=== PATIENT | female | born 1945 | race African-American/Black ===

== ENCOUNTER 2017-06-22 16:54 | Emergency (ER) | payer OTHER, MEDICAID ==
[~2017-06-22] VITALS: Ht 157.5 cm; Wt 88.9 kg
[~2017-06-22 16:54] MED LIST: ADVAIR 250-501 EACH INH; ALBUTEROL SULF8.5 GM INH; ASPIRIN EC81 MG PO; ATORVASTATIN CA10 MG PO; ATORVASTATIN CA20 MG ORAL; ATROVENT HFA12.9 GM IH; AZITHROMYCIN250 MG ORAL; AZITHROMYCIN250 MG PO; COREG3.125 MG ORAL; DEXAMETHASONE2 MG PO; DILTIAZEM 24HR360 MG PO; DOXYCYCLINE MO100 MG PO; FUROSEMIDE20 M1 PO; FUROSEMIDE40 MG/5 ML ORAL; GABAPENTIN800 MG PO; KLOR-CON 1010 MEQ PO; NEURONTIN100 MG ORAL; NORCO 5-325 TA1 EAC1 ORAL; PROAIR HFA8.5 GM INH; PROMETHAZINE-C118 M1 ORAL; TRAMADOL HCL50 MG ORAL; TRAMADOL HCL50 MG PO; TYLENOL #31 TAB PO; VENTOLIN HFA18 GM INH
[2017-06-22] MEDS: Norco 7.5mg/325mg tab ORAL ONE (19:10)
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
[2017-06-22 19:55] VITALS: BP 166/89
[2017-06-22 20:00] VITALS: BP 177/98
--- NOTE | 2017-06-23 14:24 | Diagnostic Imaging Report ---
Indications: Fall, left knee injury and pain Technique: 3 views left knee. Findings: Comparison: None No fracture, dislocation, joint space widening or effusion , surrounding soft tissue swelling/foreign body/gas, or other acute changes are identified. Patellofemoral and knee joint space is severely narrowed with marginal osteophyte formation, subchondral sclerosis. IMPRESSION: No evidence of acute injury the left knee Severe osteoarthritis.
== END 2017-06-22 20:00 | disposition home or self-care (01) ==
LOC: EMR 17:45
DX: M17.12 Unilateral primary osteoarthritis, left knee (principal); I10 Essential (primary) hypertension; J44.9 Chronic obstructive pulmonary disease, unspecified; K21.9 Gastro-esophageal reflux disease without esophagitis
CPT/HCPCS: 29530; 99283

== ENCOUNTER 2017-11-30 19:43 | Emergency (ER) | payer MEDICAID, MEDICARE, OTHER ==
[~2017-11-30] VITALS: Ht 157.5 cm; Wt 138.8 kg
[2017-11-30] MEDS ORDERED: NORCO 5-325 TA1 EAC1 ORAL (21:05)
[2017-11-30 21:27] VITALS: BP 131/71
--- NOTE | 2017-11-30 22:12 | Emergency Room Report ---
History of Present Illness General Chief Complaint: Lower Extremity Injury Source: Patient (LIO KHOURY) Present Illness HPI The patient is a 72-year-old female presenting for right toe pain. She has a history of chronic swelling to the extremities. She states that 3 weeks ago, she was putting on her underwear which caught her toe and pulled it. Pain has continued and is an 8/10 dull ache. Does not radiate. It worse with touch. She denies other symptoms including numbness or tingling, fever, chills, calf pain, shortness of breath (LIO KHOURY) Allergies: Coded Allergies: HYDROCODONE (Verified Allergy, Mild, 09/19/11) Patient History Past Medical History: see triage record Pertinent Family History: none Reviewed Nursing Documentation: PMH: Agreed, PSxH: Agreed (LIO KHOURY) Nursing Documentation-PMH Hx Hypertension: Yes Hx Pacemaker: No Hx Asthma: Yes Hx COPD: Yes Hx Diabetes: No Hx Cancer: No Hx Gastrointestinal Problems: Yes - GERD Hx Dialysis: No Hx Neurological Problems: No Hx Cerebrovascular Accident: No (LIO KHOURYATherese) Review of Systems All Other Systems: negative except mentioned in HPI (LIO KHOURY) Physical Exam Vital Signs Date Time Temp Pulse Resp B/P (MAP) Pulse Ox O2 Delivery O2 Flow Rate FiO2 11/30/17 20:04 98.1 96 16 131/71 97 Room Air Sp02 EP Interpretation: reviewed, normal General Appearance: no apparent distress, alert, GCS 15, non-toxic Head: normocephalic, atraumatic Eyes: bilateral eye normal inspection, bilateral eye PERRL Musculoskeletal: back normal, gait/station normal, normal range of motion, swelling - bilat lower legs, tender - R 3rd toe Neurologic: alert, oriented x3, responsive, motor strength/tone normal, sensory intact, speech normal Psychiatric: judgement/insight normal, memory normal, mood/affect normal, no suicidal/homicidal ideation Skin: normal color, no rash, warm/dry Lymphatic: no adenopathy (LIO KHOURYATherese) Medical Decision Making PA Attestation Dr. Wagner is my supervising physician. Patient management was discussed with my supervising physician (LIO KHOURYATherese) Medicare Attestation I, Teresa Wagner MD hereby attest that the medical record entry accurately reflects signatures/notations that I made in my capacity as MD when I treated/ diagnosed the above listed Medicare beneficiary. I attest that this information is true, accurate and complete to the best of my knowledge. I understand that any falsification, omission, or concealment of material fact may subject me to administrative, civil, or criminal liability. This patient warrants hospital admission for extreme of age and has a condition that cannot be treated as outpatient. (Teresa Wagner M.D.) Diagnostic Impression: Primary Impression: Toe sprain Qualified Codes: S93.509A - Unspecified sprain of unspecified toe(s), initial encounter ER Course The patient is a 72-year-old female presenting for right toe pain. Differential diagnoses considered but not limited to: paronychia, abscess, cellulitis, fracture, sprain, among others PE: NAD. Afebrile. There is bilateral lower leg edema. Patient states that this is normal. This is a chronic condition. Nonpitting. No rash. There is tenderness over the third toe. Full active range of motion is intact. No ecchymosis X-ray of the right foot shows no acute findings She'll be discharged with pain medication. ER precautions are given (LIO KHOURY.Antonietta) ER Course I have reviewed the PA's interpretation of Xray results and agree with findings. (Teresa Wagner M.D.) Other X-Ray Diagnostic Results Other X-Ray Diagnostic Results : X-Ray ordered: R foot # of Views/Limited Vs Complete: 3 View Indication: Pain EP Interpretation: Yes PA Xray: Interpretation reviewed, by supervising MD, and agrees with findings. Interpretation: no dislocation, no fractures Impression: No acute disease Electronically Signed by: Lio Khoury PA-C (LIO KHOURY) Last Vital Signs Date Time Temp Pulse Resp B/P (MAP) Pulse Ox O2 Delivery O2 Flow Rate FiO2 11/30/17 21:27 98.1 16 131/71 97 Room Air 11/30/17 20:04 96 Status: improved (LIO KHOURY) Disposition: HOME, SELF-CARE Condition: Improved Scripts Hydrocodone Bit/Acetaminophen 5-325* (NORCO 5-325 TABLET*) 1 Each Tablet 1 TAB ORAL Q6HR Y for For Pain, #10 TAB Prov: LIO KHOURY 11/30/17 Patient Instructions: Foot Sprain Additional Instructions: I discussed my findings with the patient. All questions and concerns have been answered. Treatment and medication compliance have been addressed. Return to ED if symptoms worsen, new symptoms arise, or if needed for any reason. Patient verbalized understanding of discharge instructions. You stated you have an appointment to see her primary doctor tomorrow for. Please keep that appointment. LIO KHOURY Nov 30, 2017 22:12 Teresa Wagner M.D. Dec 04, 2017 13:57
--- NOTE | 2017-12-01 09:22 | Diagnostic Imaging Report ---
Indication: Reason For Exam: PAIN Technique: 3 views right foot Comparison: none Findings: The dorsal soft tissues are massively swollen. There is metatarsus adductus. There is hallux valgus with severe secondary degenerative changes of the first metatarsophalangeal joint. There is also slight subluxation of the first metatarsophalangeal joint. No definite acute fractures. No dislocations. Impression: Dorsal soft tissue swelling, likely combination of edema and body habitus No definite acute bony trauma Severe degenerative changes and slight subluxation of the first metatarsophalangeal joint
== END 2017-11-30 22:00 | disposition home or self-care (01) ==
LOC: EMR 21:34
DX: S93.524A Sprain of metatarsophalangeal joint of right lesser toe(s), initial encounter (principal); X50.9XXA Other and unspecified overexertion or strenuous movements or postures, initial encounter; Y92.9 Unspecified place or not applicable; I10 Essential (primary) hypertension; J44.9 Chronic obstructive pulmonary disease, unspecified; K21.9 Gastro-esophageal reflux disease without esophagitis
CPT/HCPCS: 99283

== ENCOUNTER 2018-03-06 18:30 | Inpatient (IN) | payer MEDICARE ==
[~2018-03-06] VITALS: Ht 157.5 cm; Wt 142.9 kg
--- NOTE | 2018-03-06 18:45 | Emergency Room Report ---
History of Present Illness General Chief Complaint: Fever Source: Patient, Family Member Present Illness HPI 72-year-old female, with multiple comorbidities however son does not exactly know what, presenting with altered mental status. Her son her normal baseline is to be able to walk with assistance and have full conversation. States that it was very hot in the department today, patient became acutely altered and incoherent. Did not fall or hit her head. Patient is currently oriented to person only, cannot give full history Allergies: Coded Allergies: HYDROCODONE (Verified Allergy, Mild, 09/19/11) ACETAMINOPHEN (Unverified Allergy, Unknown, 03/06/18) Patient History Past Medical History: see triage record Past Surgical History: none Pertinent Family History: none Reviewed Nursing Documentation: PMH: Agreed; PSxH: Agreed Nursing Documentation-PMH Hx Hypertension: Yes Hx Pacemaker: No Hx Asthma: Yes Hx COPD: Yes Hx Diabetes: No Hx Cancer: No Hx Gastrointestinal Problems: Yes - GERD Hx Dialysis: No Hx Neurological Problems: No Hx Cerebrovascular Accident: No Review of Systems All Other Systems: limited Physical Exam Vital Signs Date Time Temp Pulse Resp B/P (MAP) Pulse Ox O2 Delivery O2 Flow Rate FiO2 03/06/18 18:21 103.0 122 20 150/100 96 Room Air 102.9 Sp02 EP Interpretation: reviewed, normal General Appearance: moderate distress, lethargic, obese, other - apx1 only Head: normocephalic, atraumatic Eyes: bilateral eye normal inspection, bilateral eye PERRL, bilateral eye EOMI ENT: normal ENT inspection, normal pharynx, normal voice, moist mucus membranes Neck: normal inspection, full range of motion, supple Respiratory: normal inspection, lungs clear, normal breath sounds, no respiratory distress, no retraction, no wheezing, chest symmetrical Cardiovascular #1: normal capillary refill, tachycardia Cardiovascular #2: 2+ radial (R), 2+ radial (L) Gastrointestinal: normal inspection, non tender, soft, non-distended, no guarding Musculoskeletal: other - lower ext swelling, no signs trauma Neurologic: other - aox1 only cannot follow commands but moving ext spont Psychiatric: anxious Skin: normal inspection, normal color, no rash, warm/dry, well hydrated, normal turgor Medical Decision Making Diagnostic Impression: Primary Impression: Sepsis Additional Impressions: Pneumonia Altered mental status ER Course 72-year-old female, generalized weakness, altered mental status DDX: dehydration vs. cardiac arrhythmia (SVT, Afib) vs. cardiac (, ACS) vs. PE vs. metabolic (hypoglycemia, hypoxia), vs neuro (seizure, CVA, intracranial bleed) versus sepsis, pneumonia, UTI Plan: bgm, cbc, bmp, ekg, cxr CT head ER course: given fluids tylenol, abx for PNA Pt more awake and alert after fluids Signed out to Dr Roque admit to outside facility d/t insurance purposes Please note that this Emergency Department Report was dictated using [employer] semiconductor technology software, occasionally this can lead to erroneous entry secondary to interpretation by the dictation equipment EKG Diagnostic Results EP Interpretation: Yes Rate: Tachycardic Rhythm: NSR ST Segments: No acute changes ASA given to patient: No Rhythm Strip EP Interpretation: Yes Rate: 123 Rhythm: NSR, no PVCs, no ectopy Chest X-ray CXR: Ordered: Yes 1 view Indication: Syncope EP interpretation: Yes Interpretation: R infiltrate Impression: R pna Electronically signed by Teresa Wagner MD Laboratory Tests Test 03/06/18 19:22 White Blood Count 7.6 K/UL (4.8-10.8) Red Blood Count 5.31 M/UL (4.20-5.40) Hemoglobin 14.4 G/DL (12.0-16.0) Hematocrit 45.4 % (37.0-47.0) Mean Corpuscular Volume 86 FL (80-99) Mean Corpuscular Hemoglobin 27.1 PG (27.0-31.0) Mean Corpuscular Hemoglobin Concent 31.6 G/DL (32.0-36.0) L Red Cell Distribution Width 13.9 % (11.6-14.8) Platelet Count 262 K/UL (150-450) Mean Platelet Volume 7.5 FL (6.5-10.1) Neutrophils (%) (Auto) % (45.0-75.0) Lymphocytes (%) (Auto) % (20.0-45.0) Monocytes (%) (Auto) % (1.0-10.0) Eosinophils (%) (Auto) % (0.0-3.0) Basophils (%) (Auto) % (0.0-2.0) Neutrophils % (Manual) Pending Lymphocytes % (Manual) Pending Platelet Estimate Pending Platelet Morphology Pending Prothrombin Time 10.0 SEC (9.30-11.50) Prothrombin Time INR 1.0 (0.9-1.1) PTT 26 SEC (23-33) Sodium Level 138 MMOL/L (136-145) Potassium Level 4.8 MMOL/L (3.5-5.1) Chloride Level 100 MMOL/L (98-107) Carbon Dioxide Level 31 MMOL/L (21-32) Anion Gap 7 mmol/L (5-15) Blood Urea Nitrogen 14 mg/dL (7-18) Creatinine 1.2 MG/DL (0.55-1.30) Estimate Glomerular Filtration Rate mL/min (>60) Glucose Level 113 MG/DL (74-106) H Lactic Acid Level 3.00 mmol/L (0.66-2.22) H Calcium Level 9.1 MG/DL (8.5-10.1) Total Bilirubin 0.5 MG/DL (0.2-1.0) Aspartate Amino Transferase (AST) 55 U/L (15-37) H Alanine Aminotransferase (ALT) 33 U/L (12-78) Alkaline Phosphatase 158 U/L (46-116) H Total Creatine Kinase 66 U/L (26-308) Troponin I 0.000 ng/mL (0.000-0.056) Pro-B-Type Natriuretic Peptide 88 pg/mL (0-125) Total Protein 8.3 G/DL (6.4-8.2) H Albumin 3.4 G/DL (3.4-5.0) Globulin 4.9 g/dL Albumin/Globulin Ratio 0.7 (1.0-2.7) L CT/MRI/US Diagnostic Results CT/MRI/US Diagnostic Results : Imaging Test Ordered: ct head Impression neg Last Vital Signs Date Time Temp Pulse Resp B/P (MAP) Pulse Ox O2 Delivery O2 Flow Rate FiO2 03/06/18 18:21 103.0 122 20 150/100 96 Room Air 102.9 Disposition: ADMITTED INPATIENT Condition: Teresa Galicia M.D. Mar 06, 2018 18:45
[2018-03-06] MEDS ORDERED: HYDROCODON-ACE1 EA13 ORAL (18:46)
[2018-03-06] MEDS ORDERED: CARBAMAZEPINE200 M3 ORAL (18:46)
[2018-03-06] MEDS ORDERED: PROVENTIL HFA6.7 G1 IH (18:46)
[2018-03-06] MEDS ORDERED: [UNRECOGNIZED DRUG - CODE] PO (18:46)
[2018-03-06] MEDS ORDERED: OMEPRAZOLE40 M1 ORAL (18:46)
[2018-03-06] MEDS ORDERED: BENAZEPRIL HCL10 MG ORAL (18:46)
[2018-03-06 19:45] LABS: HEMATOCRIT 45.4 % (37.0-47.0); HEMOGLOBIN 14.4 G/DL (12.0-16.0); MEAN CORPUSCULAR VOLUME 86 FL (80-99); PLATELET COUNT 262 K/UL (150-450); RED BLOOD COUNT 5.31 M/UL (4.20-5.40); RED CELL DISTRIBUTION WIDTH 13.9 % (11.6-14.8); WHITE BLOOD COUNT 7.6 K/UL (4.8-10.8)
[2018-03-06 19:54] LABS: ANION GAP 7 mmol/L (5-15); BLOOD UREA NITROGEN 14 mg/dL (7-18); CALCIUM 9.1 MG/DL (8.5-10.1); CARBON DIOXIDE 31 MMOL/L (21-32); CHLORIDE 100 MMOL/L (98-107); CREATININE 1.2 MG/DL (0.55-1.30); POTASSIUM 4.8 MMOL/L (3.5-5.1); SODIUM 138 MMOL/L (136-145)
[2018-03-06] MEDS ORDERED: Acetaminophen 650 MG SUPP RECTAL ONE (20:00)
[2018-03-06 20:05] LABS: ALANINE AMINOTRANSFERASE 33 U/L (12-78); ALBUMIN 3.4 G/DL (3.4-5.0); ALBUMIN/GLOBULIN RATIO 0.7 (1.0-2.7); ALKALINE PHOSPHATASE 158 U/L (46-116); ASPARTATE AMINO TRANSFERASE 55 U/L (15-37); BILIRUBIN,TOTAL 0.5 MG/DL (0.2-1.0); CREATINE KINASE 66 U/L (26-308)
[2018-03-06] MEDS ORDERED: cefTRIAXone 1 GM in NS 55 ML IVPB ONE (20:30)
[2018-03-06] MEDS ORDERED: Azithromycin 500 MG in D5W 275 ML IVPB ONE (20:30)
[2018-03-06] MEDS ORDERED: Morphine Sulfate 4mg/ml Inj IVP ONE (21:45)
[2018-03-07] VITALS (7 sets, daily range): BP systolic 106–128; BP diastolic 45–69
[2018-03-07] MEDS ORDERED: Miralax 17gm pkt ORAL PRN (06:15)
[2018-03-07] MEDS ORDERED: Albuterol/Ipratropium 3ml neb HHN PRN (06:15)
[2018-03-07] MEDS ORDERED: Nitroglycerin Subl 0.4mg tab SL PRN (06:15)
[2018-03-07] MEDS: Benazepril 10mg tab ORAL SCH (09:16)
[2018-03-07] MEDS: Heparin 5000 units/ml inj SUBQ SCH ×2 (09:19→21:12)
[2018-03-07] MEDS: Cefepime HCl 2 GM in D5W 110 ML IV SCH ×2 (09:20→20:59)
[2018-03-07] MEDS ORDERED: Vancomycin 1500mg IVPB ONE (09:30)
--- NOTE | 2018-03-07 09:44 | Diagnostic Imaging Report ---
Indications: Altered mental status Technique: Spiral acquisitions obtained through the brain. Angled axial and coronal 5 x 5 mm slices were reconstructed. Total dose length product 1481.57 mGycm. CTDI vol(s) 70.38 mGy. Dose reduction achieved using automated exposure control Comparison: 09/21/2011 Findings: There is some image degradation due to motion artifact; per technologist, patient was unable to hold still. There is age-related enlargement of the ventricles and extra-axial CSF spaces. No gross acute intracranial hemorrhage or edema, mass effect or midline shift. There is mild periventricular deep white matter low-attenuation. The calvarium is intact. There is chronic appearing sclerosis of the right mastoids. There are dense falx calcifications. The sinuses are clear. Impression: Limited exam due to image degradation from motion artifact No gross acute intracranial bleed or mass effect Chronic and age-related changes, as described This agrees with the preliminary interpretation provided overnight by [facility]erad[facility] service. The CT scanner at [facility] is accredited by the [employer] and the scans are performed using protocols designed to limit radiation exposure to as low as reasonably achievable to attain images of sufficient resolution adequate for diagnostic evaluation.
--- NOTE | 2018-03-07 10:40 | Diagnostic Imaging Report ---
Indication: Dyspnea Technique: One view of the chest Comparison: 03/06/2018 Findings: The lungs and pleural spaces are clear. The heart size is normal. Decreased apparent right hemithoracic hazy opacity is probably related to better positioning on the current exam. There is mild thoracic scoliotic deformity incidentally noted Impression: No acute process
[2018-03-07 10:46] LABS: APPEARANCE,URINE TURBID; BILIRUBIN, URINE NEGATIVE (NEGATIVE); GLUCOSE, URINE (UA) NEGATIVE (NEGATIVE); KETONES,URINE NEGATIVE (NEGATIVE); LEUKOCYTE ESTERASE ,URINE NEGATIVE (NEGATIVE); NITRITE,URINE NEGATIVE (NEGATIVE); PH,URINE 8 (4.5-8.0); PROTEIN,URINE NEGATIVE (NEGATIVE); UROBILINOGEN,URINE 1 MG/DL (0.0-1.0)
[2018-03-07 10:53] LABS: COLOR,URINE YELLOW
[2018-03-07] MEDS: Morphine Sulfate 4mg/ml Inj IVP PRN ×2 (11:09→16:21)
--- NOTE | 2018-03-07 12:28 | Diagnostic Imaging Report ---
Indication: Chest pain Technique: One view of the chest Comparison: 06/03/2016 Findings: The patient is rotated to the left. Hazy opacity of the right hemithorax probably is artifact of rotation. The heart appears borderline enlarged. The lungs pleural spaces are otherwise clear. Impression: Doubt acute process, cannot exclude parenchymal disease in the right lung
--- NOTE | 2018-03-07 14:23 | Cardiology Progress Note ---
Assessment/Plan Assessment/Plan [id number] Objective Last 24 Hour Vital Signs Date Time Temp Pulse Resp B/P (MAP) Pulse Ox O2 Delivery O2 Flow Rate FiO2 03/07/18 12:00 98.1 107 19 126/64 97 Room Air 98.1 03/07/18 12:00 108 03/07/18 09:19 114 125/69 03/07/18 09:16 125/69 03/07/18 08:00 98.2 114 19 125/69 95 Room Air 98.2 03/07/18 08:00 112 03/07/18 04:00 98.1 115 24 110/65 94 Room Air 98.1 03/07/18 04:00 119 03/07/18 03:11 99.7 99.7 03/07/18 00:34 100.0 127 20 121/60 95 Room Air 100.0 03/07/18 00:18 101.0 20 150/100 96 Room Air 102.9 03/07/18 00:00 99.0 98 20 106/45 96 Room Air 99.0 03/06/18 21:19 101.0 03/06/18 18:21 103.0 122 20 150/100 96 Room Air 102.9 Intake and Output 03/06/18 03/07/18 19:00 07:00 Intake Total 0 ml 0 ml Balance 0 ml 0 ml Intake Oral 0 ml 0 ml # Voids 2 # Bowel Movements 1 Laboratory Tests Test 03/06/18 19:22 03/06/18 22:50 03/07/18 08:40 White Blood Count 7.6 K/UL (4.8-10.8) Red Blood Count 5.31 M/UL (4.20-5.40) Hemoglobin 14.4 G/DL (12.0-16.0) Hematocrit 45.4 % (37.0-47.0) Mean Corpuscular Volume 86 FL (80-99) Mean Corpuscular Hemoglobin 27.1 PG (27.0-31.0) Mean Corpuscular Hemoglobin Concent 31.6 G/DL (32.0-36.0) L Red Cell Distribution Width 13.9 % (11.6-14.8) Platelet Count 262 K/UL (150-450) Mean Platelet Volume 7.5 FL (6.5-10.1) Neutrophils (%) (Auto) % (45.0-75.0) Lymphocytes (%) (Auto) % (20.0-45.0) Monocytes (%) (Auto) % (1.0-10.0) Eosinophils (%) (Auto) % (0.0-3.0) Basophils (%) (Auto) % (0.0-2.0) Differential Total Cells Counted 100 Neutrophils % (Manual) 86 % (45-75) H Lymphocytes % (Manual) 7 % (20-45) L Monocytes % (Manual) 3 % (1-10) Eosinophils % (Manual) 0 % (0-3) Basophils % (Manual) 0 % (0-2) Band Neutrophils 4 % (0-8) Platelet Estimate Adequate Platelet Morphology Normal Red Blood Cell Morphology Normal Prothrombin Time 10.0 SEC (9.30-11.50) Prothromb Time International Ratio 1.0 (0.9-1.1) Activated Partial Thromboplast Time 26 SEC (23-33) Sodium Level 138 MMOL/L (136-145) Potassium Level 4.8 MMOL/L (3.5-5.1) Chloride Level 100 MMOL/L (98-107) Carbon Dioxide Level 31 MMOL/L (21-32) Anion Gap 7 mmol/L (5-15) Blood Urea Nitrogen 14 mg/dL (7-18) Creatinine 1.2 MG/DL (0.55-1.30) Estimat Glomerular Filtration Rate mL/min (>60) Glucose Level 113 MG/DL (74-106) H Lactic Acid Level 3.00 mmol/L (0.66-2.22) H 2.30 mmol/L (0.66-2.22) H Calcium Level 9.1 MG/DL (8.5-10.1) Total Bilirubin 0.5 MG/DL (0.2-1.0) Aspartate Amino Transf (AST/SGOT) 55 U/L (15-37) H Alanine Aminotransferase (ALT/SGPT) 33 U/L (12-78) Alkaline Phosphatase 158 U/L (46-116) H Total Creatine Kinase 66 U/L (26-308) Troponin I 0.000 ng/mL (0.000-0.056) Pro-B-Type Natriuretic Peptide 88 pg/mL (0-125) Total Protein 8.3 G/DL (6.4-8.2) H Albumin 3.4 G/DL (3.4-5.0) Globulin 4.9 g/dL Albumin/Globulin Ratio 0.7 (1.0-2.7) L Urine Color Yellow Urine Appearance Turbid Urine pH 8 (4.5-8.0) Urine Specific [place] 1.010 (1.005-1.035) Urine Protein Negative (NEGATIVE) Urine Glucose (UA) Negative (NEGATIVE) Urine Ketones Negative (NEGATIVE) Urine Occult Blood Negative (NEGATIVE) Urine Nitrite Negative (NEGATIVE) Urine Bilirubin Negative (NEGATIVE) Urine Urobilinogen 1 MG/DL (0.0-1.0) H Urine Leukocyte Esterase Negative (NEGATIVE) Urine RBC 0-2 /HPF (0 - 2) Urine WBC 0-2 /HPF (0 - 2) Urine Squamous Epithelial Cells Many /LPF (NONE/OCC) H Urine Bacteria Few /HPF (NONE) BAYRON BRANAHM Mar 07, 2018 14:23
--- NOTE | 2018-03-07 14:47 | History and Physical ---
History of Present Illness General Date patient seen: Mar 07, 2018 Reason for Hospitalization: Fever Present Illness HPI 72-year-old female with hx of CHF, COPD, morbid obesity, elephantiasis, bed bound because of heaviness presented to ER with CC of altered mental status. Her son her normal baseline is to have full conversation. She became acutely altered and incoherent. Did not fall or hit her head. She was febrile as well. She is admitted for acute encephalopathy and sepsis. Allergies: Coded Allergies: HYDROCODONE (Verified Allergy, Mild, 09/19/11) ACETAMINOPHEN (Unverified Allergy, Unknown, 03/06/18) Medication History Scheduled Aspirin Ec* (Aspirin Ec*), 81 MG PO DAILY, (Reported) Atorvastatin Calcium* (Atorvastatin Calcium*), 40 MG ORAL DAILY, (Reported) Benazepril Hcl* (Benazepril Hcl*), 10 MG ORAL DAILY, (Reported) Carbamazepine Xr* (Tegretol Xr*), 300 MG ORAL TWICE A DAY, (Reported) Carvedilol (Coreg), 3.125 MG ORAL EVERY 12 HOURS Fluticasone/Salmeterol (Advair 250-50 Diskus), 1 PUFF INH EVERY 12 HOURS, ( Reported) Furosemide* (Lasix*), 40 MG PO DAILY Gabapentin* (Neurontin*), 800 MG ORAL TID, (Reported) Hydrocodone Bit/Acetaminophen 10-325* (Hydrocodon-Acetaminophn 10-325*), 1 TAB ORAL Q4H, (Reported) Omeprazole (Omeprazole), 40 MG ORAL DAILY, (Reported) Scheduled PRN Albuterol Sulfate (Ventolin Hfa), 2 PUFFS INH Q4HR PRN for Shortness of Breath, (Reported) Hydrocodone Bit/Acetaminophen 5-325* ([place] 5-325 Tablet*), 1 TAB ORAL Q4H PRN for For Pain Hydrocodone Bit/Acetaminophen 5-325* ([place] 5-325 Tablet*), 1 TAB ORAL Q6HR PRN for For Pain Tramadol Hcl* (Ultram*), 100 MG ORAL TID PRN for For Pain, (Reported) Miscellaneous Medications Albuterol Sulfate (Proventil Hfa), 6.7 GM IH, (Reported) Cholecalciferol (Vitamin D3) (Vitamin D3), 2,000 UNIT PO, (Reported) Patient History Healthcare decision maker Resuscitation status Full Code Advanced Directive on File No Past Medical/Surgical History Past Medical/Surgical History: (1) CHF (congestive heart failure) (2) Peripheral edema Review of Systems Constitutional: Reports: no symptoms All Other Systems: negative except mentioned in HPI Physical Exam General Appearance: morbidly obese Lines, tubes and drains: peripheral HEENT: normocephalic, atraumatic Neck: non-tender, normal alignment Respiratory/Chest: chest wall non-tender, lungs clear Breasts: no masses Cardiovascular/Chest: normal peripheral pulses Genitourinary/Rectal: normal genital exam Last 24 Hour Vital Signs Date Time Temp Pulse Resp B/P (MAP) Pulse Ox O2 Delivery O2 Flow Rate FiO2 03/07/18 12:00 98.1 107 19 126/64 97 Room Air 98.1 03/07/18 12:00 108 03/07/18 09:19 114 125/69 03/07/18 09:16 125/69 03/07/18 08:00 98.2 114 19 125/69 95 Room Air 98.2 03/07/18 08:00 112 03/07/18 04:00 98.1 115 24 110/65 94 Room Air 98.1 03/07/18 04:00 119 03/07/18 03:11 99.7 99.7 03/07/18 00:34 100.0 127 20 121/60 95 Room Air 100.0 03/07/18 00:18 101.0 20 150/100 96 Room Air 102.9 03/07/18 00:00 99.0 98 20 106/45 96 Room Air 99.0 03/06/18 21:19 101.0 03/06/18 18:21 103.0 122 20 150/100 96 Room Air 102.9 Intake and Output 03/06/18 03/07/18 19:00 07:00 Intake Total 0 ml 0 ml Balance 0 ml 0 ml Intake Oral 0 ml 0 ml # Voids 2 # Bowel Movements 1 Laboratory Tests Test 03/06/18 19:22 03/06/18 22:50 03/07/18 08:40 White Blood Count 7.6 K/UL (4.8-10.8) Red Blood Count 5.31 M/UL (4.20-5.40) Hemoglobin 14.4 G/DL (12.0-16.0) Hematocrit 45.4 % (37.0-47.0) Mean Corpuscular Volume 86 FL (80-99) Mean Corpuscular Hemoglobin 27.1 PG (27.0-31.0) Mean Corpuscular Hemoglobin Concent 31.6 G/DL (32.0-36.0) L Red Cell Distribution Width 13.9 % (11.6-14.8) Platelet Count 262 K/UL (150-450) Mean Platelet Volume 7.5 FL (6.5-10.1) Neutrophils (%) (Auto) % (45.0-75.0) Lymphocytes (%) (Auto) % (20.0-45.0) Monocytes (%) (Auto) % (1.0-10.0) Eosinophils (%) (Auto) % (0.0-3.0) Basophils (%) (Auto) % (0.0-2.0) Differential Total Cells Counted 100 Neutrophils % (Manual) 86 % (45-75) H Lymphocytes % (Manual) 7 % (20-45) L Monocytes % (Manual) 3 % (1-10) Eosinophils % (Manual) 0 % (0-3) Basophils % (Manual) 0 % (0-2) Band Neutrophils 4 % (0-8) Platelet Estimate Adequate Platelet Morphology Normal Red Blood Cell Morphology Normal Prothrombin Time 10.0 SEC (9.30-11.50) Prothromb Time International Ratio 1.0 (0.9-1.1) Activated Partial Thromboplast Time 26 SEC (23-33) Sodium Level 138 MMOL/L (136-145) Potassium Level 4.8 MMOL/L (3.5-5.1) Chloride Level 100 MMOL/L (98-107) Carbon Dioxide Level 31 MMOL/L (21-32) Anion Gap 7 mmol/L (5-15) Blood Urea Nitrogen 14 mg/dL (7-18) Creatinine 1.2 MG/DL (0.55-1.30) Estimat Glomerular Filtration Rate mL/min (>60) Glucose Level 113 MG/DL (74-106) H Lactic Acid Level 3.00 mmol/L (0.66-2.22) H 2.30 mmol/L (0.66-2.22) H Calcium Level 9.1 MG/DL (8.5-10.1) Total Bilirubin 0.5 MG/DL (0.2-1.0) Aspartate Amino Transf (AST/SGOT) 55 U/L (15-37) H Alanine Aminotransferase (ALT/SGPT) 33 U/L (12-78) Alkaline Phosphatase 158 U/L (46-116) H Total Creatine Kinase 66 U/L (26-308) Troponin I 0.000 ng/mL (0.000-0.056) Pro-B-Type Natriuretic Peptide 88 pg/mL (0-125) Total Protein 8.3 G/DL (6.4-8.2) H Albumin 3.4 G/DL (3.4-5.0) Globulin 4.9 g/dL Albumin/Globulin Ratio 0.7 (1.0-2.7) L Urine Color Yellow Urine Appearance Turbid Urine pH 8 (4.5-8.0) Urine Specific [place] 1.010 (1.005-1.035) Urine Protein Negative (NEGATIVE) Urine Glucose (UA) Negative (NEGATIVE) Urine Ketones Negative (NEGATIVE) Urine Occult Blood Negative (NEGATIVE) Urine Nitrite Negative (NEGATIVE) Urine Bilirubin Negative (NEGATIVE) Urine Urobilinogen 1 MG/DL (0.0-1.0) H Urine Leukocyte Esterase Negative (NEGATIVE) Urine RBC 0-2 /HPF (0 - 2) Urine WBC 0-2 /HPF (0 - 2) Urine Squamous Epithelial Cells Many /LPF (NONE/OCC) H Urine Bacteria Few /HPF (NONE) Height (Feet): 5 Height (Inches): 2.00 Weight (Pounds): 321 Medications Current Medications Medications (Trade) Dose Ordered Sig/Nydai Route PRN Reason Start Time Stop Time Status Last Admin Dose Admin Albuterol/ Ipratropium (Albuterol/ Ipratropium) 3 ml Q4H PRN HHN Shortness of Breath 03/07/18 06:15 03/12/18 06:14 Benazepril HCl (Lotensin) 10 mg DAILY ORAL 03/07/18 09:00 04/06/18 08:59 03/07/18 09:16 Carvedilol (Coreg) 3.125 mg EVERY 12 HOURS ORAL 03/07/18 09:00 04/06/18 08:59 03/07/18 09:19 Cefepime HCl 2 gm/ Dextrose 110 ml @ 220 mls/hr EVERY 12 HOURS IV 03/07/18 09:00 03/14/18 08:59 03/07/18 09:20 Gabapentin (Neurontin) 800 mg TID ORAL 03/07/18 09:00 04/06/18 08:59 03/07/18 13:26 Heparin Sodium (Porcine) (Heparin 5000 units/ml) 5,000 units EVERY 12 HOURS SUBQ 03/07/18 09:00 04/06/18 08:59 03/07/18 09:19 Morphine Sulfate (Morphine Sulfate) 2 mg Q4H PRN IVP MOD-SEVERE PAIN 03/07/18 09:15 03/14/18 09:14 03/07/18 11:09 Nitroglycerin (Ntg) 0.4 mg Q5M PRN SL Prn Chest Pain 03/07/18 06:15 04/06/18 06:14 Ondansetron HCl (Zofran) 4 mg Q6H PRN IVP Nausea & Vomiting 03/07/18 06:15 04/06/18 06:14 Polyethylene Glycol (Miralax) 17 gm DAILYPRN PRN ORAL Constipation 03/07/18 06:15 04/06/18 06:14 Sodium Chloride 1,000 ml @ 150 mls/hr Q6H40M IV 03/07/18 06:12 04/06/18 06:11 03/07/18 06:49 Temazepam (Restoril) 15 mg HSPRN PRN ORAL Insomnia 03/07/18 06:15 03/14/18 06:14 Vancomycin HCl (Vanco rx to dose) 1 ea DAILY PRN MISC Per rx protocol 03/07/18 08:30 04/06/18 08:29 Vancomycin HCl/ Dextrose 250 ml @ 166.636 mls/hr Q24H IVPB 03/08/18 10:00 03/13/18 09:59 Assessment/Plan Problem List: (1) Acute encephalopathy ICD Codes: G93.40 - Encephalopathy, unspecified SNOMED: 21848031, 686833358 (2) Sepsis ICD Codes: A41.9 - Sepsis, unspecified organism SNOMED: 26814477 (3) CHF (congestive heart failure) ICD Codes: I50.9 - Heart failure, unspecified SNOMED: 71117802 (4) Peripheral edema ICD Codes: R60.9 - Edema, unspecified SNOMED: 344688282 (5) Hypertension Assessment/Plan saucedo culture iv abx check sputum echo cardiology to see dvt prophylaxis doubt CHF now Arelis Leavitt MD Mar 07, 2018 14:47
--- NOTE | 2018-03-07 16:24 | Cardiology Report ---
APPROVED REPORT EKG Measurement Heart [id number] Sinus tachycardia Low voltage QRS Borderline ECG
--- NOTE | 2018-03-07 18:30 | Consultation ---
Consult Note Consult Note ID DIC # [id number] Marlon Santa MD Mar 07, 2018 18:30
--- NOTE | 2018-03-07 18:30 | Consultation ---
DATE OF CONSULTATION: 03/07/2018 ADDENDUM CONSULTING PHYSICIAN: Meek Purcell M.D. REFERRING PHYSICIAN: Arelis Leavitt M.D. LABORATORY AND DIAGNOSTIC DATA: White count of 7.6, hemoglobin 14.4, and a platelet count of 262,000. Sodium is 138, potassium 4.8, chloride 100, bicarbonate 31, BUN 14, creatinine 1.2, and a glucose of 113. Lactic acid level of 3.0 and subsequently 2.3. Troponin first set was negative. ProBNP was only 88. Gamma globulin was 4.2. Albumin of 3.2. Coags, INR 1.0 and a PTT of 28. Urinalysis appears fairly unremarkable. IMAGING: The chest x-ray was performed that showed no acute processes and a CT scan of the head was also performed and that showed limited examination, motion artifact, no gross acute intracranial bleed or mass effect, and chronic and age-related changes. The patient had an electrocardiogram that showed basically sinus tachycardia at the rate of 123. There are no significant ST or T-wave abnormalities. Tremor artifact was identified. The patient's telemetry data shows sinus tachycardia at the rate of 108, 112, and 119. ASSESSMENT AND PLAN: 1. Altered mentation with no loss of consciousness. 2. Fevers. 3. Obesity. 4. Lymphedema. 5. Pneumonia. 6. Diabetes mellitus. 7. Hypertension. This patient was seen in cardiac consultation. The patient's sinus tachycardia is secondary to demand. The patient was febrile at the time of admission. She has improved with her tachycardia and her blood pressure appears to be adequate. She has been diagnosed with pneumonia, for which she is getting treatment including breathing treatments. IV antibiotics have already been instituted. The patient will have an echocardiogram, although her last echocardiogram that was performed in 2015 had shown a normal left ventricular systolic function, a technically difficult study. No significant valvular dysfunction. This echocardiogram will be repeated. The patient may require infusion of IV fluids. She did have a stress test here in 2013 and at that time, it showed ejection fraction of 66%. No ischemia was identified 4 years ago when this last test was performed. She does not have any chest pains or pressure. Her first set of cardiac enzymes was negative. ProBNP was normal. She will have repeat cardiac enzymes, EKGs, and proBNP and thyroid-stimulating hormone to be performed again as well. I will follow the patient along with you. Meek Purcell M.D. DR: CLEM JOB#: [id number] CC:
--- NOTE | 2018-03-07 19:15 | Consultation ---
DATE OF CONSULTATION: 03/07/2018 INFECTIOUS DISEASE CONSULTATION CONSULTING PHYSICIAN: Marlon Santa M.D REFERRING PHYSICIAN: Arelis Leavitt M.D. REASON FOR REQUEST: Evaluation of patient for fever, sepsis, and antibiotic management. HISTORY OF PRESENT ILLNESS: The patient is a 72-year-old female with multiple medical problems as listed below, who was admitted to this medical center from home due to altered level of consciousness. The patient was found to be febrile. The patient's mental status has improved. Infectious Disease consultation has been requested for further evaluation of patient and antibiotic management. REVIEW OF SYSTEMS: HEENT: No recent change in vision or hearing. No headaches. LUNGS: No cough. CARDIOVASCULAR: No chest pain or palpitation. GASTROINTESTINAL/ABDOMEN: No nausea or vomiting. GENITOURINARY: No dysuria. MUSCULOSKELETAL: The patient has chronic lymphedema. PAST MEDICAL HISTORY: 1. CHF. 2. Bilateral lymphedema. 3. Asthma/COPD . 4. Hypertension. MEDICATIONS: IV vancomycin and cefepime. ALLERGIES: Vicodin. PHYSICAL EXAMINATION: VITAL SIGNS: Temperature 101.8 degrees, pulse 66, and respiratory rate 18. HEENT: No pale conjunctivae. No icterus. NECK: No lymphadenopathy. CHEST: Clear. HEART: S1 and S2. ABDOMEN: Soft, obese, and nontender. EXTREMITIES: The patient has bilateral lower extremity edema, not tender, not painful on touch, difficult to assess discoloration because of the edema and dark skin. NEUROLOGIC: Awake and alert. LABS: White blood cells 7.6, hemoglobin 14, platelets 262. UA unremarkable. BUN 14, creatinine 1.2. ALT normal, AST 55, alkaline phosphatase 158 (the patient has chronically mildly elevated alkaline phosphatase back to 2013). Chest x-ray, [facility]. Head CT unremarkable. ASSESSMENT: The patient is a 72-year-old female with, 1. Fever. 2. Status post altered level of consciousness. 3. Normal white blood cells. 4. ? lower extremity cellulitis. 5. Rule out bacteremia. 6. Rule out urinary tract infection. 7. Rule out influenza. PLAN: 1. We will continue the patient on vancomycin and cefepime. 2. Monitor CBC. 3. Monitor BMP. 4. Monitor cultures (blood, urine). 5. Influenza screening. 6. Monitor chest x-ray. 7. Based on the patient's labs, we will do further recommendation. Thank you, Dr. Leavitt, for allowing me to participate in the care of this patient. I will follow the patient with you during this hospitalization. Marlon Santa M.D. DR: HODA JOB#: [id number] CC:
--- NOTE | 2018-03-07 23:00 | Consultation ---
DATE OF CONSULTATION: 03/07/2018 NOTE: INCOMPLETE DICTATION CARDIOLOGY CONSULTATION CONSULTING PHYSICIAN: Meek Purcell M.D. REFERRING PHYSICIAN: Arelis Leavitt M.D. REASON FOR REFERRAL: Tachycardia and altered mentation. HISTORY OF PRESENT ILLNESS: This is a 72-year-old female, who was brought to the emergency room at [facility] by the paramedics with the daughter. Information is obtained from the patient and the daughter. The daughter tells me that she saw the patient yesterday, went out and got some stuff from the store, came back. She was sitting in a wheelchair and would not be responsive. Eyes were open and she was shivering a little bit, but she was not really responsive to anything. Paramedics were summoned. They brought the patient to the emergency room at [facility] and she was subsequently admitted. She remained altered with her mentation until today when she started according to her daughter. She really does not have any chest pain. There is no shortness of breath. She denies any PND, although she is a CPAP user, machine has been broken. She uses one to two pillows, they are flat pillows. She has no palpitation. She is really not able to stand up and she does not ambulate much. She is mostly in the bed and wheelchair. PAST MEDICAL HISTORY: Positive for systemic hypertension, diabetes mellitus, morbid obesity, lymphedema, left ventricular diastolic dysfunction, possibility of lower extremity deep venous thrombosis many years ago, asthma and some mild renal insufficiency. No prior history of heart attack. No cancer. No stroke. No hepatitis or tuberculosis. No ulcers. No liver problems, thyroid problems, anemia, arthritis, HIV, or AIDS. ALLERGIES: She is allergic to Tylenol and hydrocodone. SOCIAL HISTORY: She quit smoking more than 20 years ago. Denies any alcoholic beverage or drug use. REVIEW OF SYSTEMS: GASTROINTESTINAL: Positive for constipation. GENITOURINARY: Negative. PULMONARY: Some coughing occasional. CONSTITUTIONAL: Negative. PHYSICAL EXAMINATION: GENERAL: Shows to be an elderly female, in no respiratory distress, awake and alert and responsive. VITAL SIGNS: Blood pressure is anywhere between 110/65 to 129/69, heart rates in the 107 to 115 range, temperature of 99.7 degrees, although when she came in she had a temperature of 103 degrees yesterday, and saturations of 95% to 97% on room air reported. NECK: Supple. There is carotid extension with cardiac murmur versus a bruit on the right side in the supraclavicular area. LUNGS: Decreased breath sounds noted bilaterally. CARDIAC: Regular rhythm. Borderline tachycardia. No heaves, thrills or gallops noted. ABDOMEN: Obese. Positive bowel sounds. EXTREMITIES: Severe significant edema of the lower extremities bilaterally. NEUROLOGICAL: She is awake, alert, responsive, and communicating. LABORATORY AND DIAGNOSTIC DATA: A chest x-ray was performed today and shows no acute processes according to the description of the administration manager and the CT scan of the head that was performed yesterday is limited exam due to image degradation secondary to motion artifact. No gross acute intracranial bleed or masses are noted. Her blood tests, white count 7.6, hemoglobin 14.4, and platelet count of 262. Sodium is 138, potassium 4.8, chloride 100, bicarbonate 31, BUN of 14 creatinine 1.2, and glucose of 113. AST 55 and alkaline phosphatase is 155. Troponin is 0.00. ProBNP was only 88. Total protein is 8.3. Meek Purcell M.D. DR: ROBINSON JOB#: [id number] CC:
[2018-03-08] VITALS: BP 137/77
[2018-03-08 04:00] VITALS: BP 155/76
[2018-03-08 08:00] VITALS: BP 147/82
[2018-03-08] MEDS: Benazepril 10mg tab ORAL SCH (08:19)
[2018-03-08] MEDS: Morphine Sulfate 4mg/ml Inj IVP PRN (08:20)
[2018-03-08] MEDS: Cefepime HCl 2 GM in D5W 110 ML IV SCH ×2 (08:20→20:45)
[2018-03-08] MEDS: Heparin 5000 units/ml inj SUBQ SCH ×2 (08:24→20:55)
[2018-03-08 08:51] LABS: HEMATOCRIT 34.6 % (37.0-47.0); HEMOGLOBIN 11.6 G/DL (12.0-16.0); MEAN CORPUSCULAR VOLUME 85 FL (80-99); PLATELET COUNT 235 K/UL (150-450); RED BLOOD COUNT 4.06 M/UL (4.20-5.40); RED CELL DISTRIBUTION WIDTH 14.1 % (11.6-14.8)
[2018-03-08 09:17] LABS: ALANINE AMINOTRANSFERASE 33 U/L (12-78); ALBUMIN 2.5 G/DL (3.4-5.0); ALBUMIN/GLOBULIN RATIO 0.6 (1.0-2.7); ALKALINE PHOSPHATASE 118 U/L (46-116); ANION GAP 7 mmol/L (5-15); ASPARTATE AMINO TRANSFERASE 27 U/L (15-37); BILIRUBIN,TOTAL 0.6 MG/DL (0.2-1.0); BLOOD UREA NITROGEN 16 mg/dL (7-18); CALCIUM 8.9 MG/DL (8.5-10.1); CARBON DIOXIDE 29 MMOL/L (21-32); CHLORIDE 104 MMOL/L (98-107); CREATININE 1.2 MG/DL (0.55-1.30); POTASSIUM 3.8 MMOL/L (3.5-5.1); SODIUM 140 MMOL/L (136-145)
[2018-03-08] MEDS ORDERED: Vancomycin 1250mg/D5W 250ml 250 ML IVPB SCH ×2 (10:00→22:00)
[2018-03-08 11:55] VITALS: BP 140/63
--- NOTE | 2018-03-08 12:55 | Pulmonology Progress Note ---
Assessment/Plan Problems: (1) Sepsis (2) Acute encephalopathy (3) CHF (congestive heart failure) (4) Peripheral edema (5) Hypertension (6) Elephantiasis Assessment/Plan BC pending, GPC iv abx check wbc, BC echo reviewed monitor BP Subjective ROS Limited/Unobtainable: No Constitutional: Reports: no symptoms HEENT: Repors: no symptoms Respiratory: Reports: no symptoms Allergies: Coded Allergies: HYDROCODONE (Verified Allergy, Mild, 09/19/11) ACETAMINOPHEN (Unverified Allergy, Unknown, 03/06/18) Objective Last 24 Hour Vital Signs Date Time Temp Pulse Resp B/P (MAP) Pulse Ox O2 Delivery O2 Flow Rate FiO2 03/08/18 11:55 99.1 105 18 140/63 96 Room Air 99.1 03/08/18 08:19 147/82 03/08/18 08:18 103 147/82 03/08/18 08:00 97.7 101 20 147/82 97 Room Air 97.7 03/08/18 08:00 99 03/08/18 04:00 99 03/08/18 04:00 98.4 103 18 155/76 98 Room Air 98.4 03/08/18 00:00 95 03/08/18 00:00 99.9 105 20 137/77 100 Room Air 99.9 03/07/18 20:58 99 128/80 03/07/18 20:00 104 03/07/18 20:00 99.1 104 18 120/61 100 Room Air 99.1 03/07/18 17:58 99.0 03/07/18 16:59 100.8 03/07/18 16:00 107 03/07/18 16:00 101.8 109 20 128/66 99 Room Air 101.8 Intake and Output 03/07/18 03/08/18 19:00 07:00 Intake Total 1590 ml 1010 ml Output Total 750 ml Balance 1590 ml 260 ml Intake Oral 270 ml 200 ml IV Total 1320 ml 810 ml Output Urine Total 750 ml # Voids 3 General Appearance: WD/WN HEENT: normocephalic, atraumatic Respiratory/Chest: chest wall non-tender, lungs clear Cardiovascular: normal peripheral pulses, normal rate, no JVD Abdomen: soft, non tender Genitourinary: normal external genitalia Extremities: no cyanosis Skin: no lesions Neurologic/Psychiatric: advocacy director II-XII grossly normal Lymphatic: no neck adenopathy Microbiology Date/Time Source Procedure Growth Status 03/06/18 19:37 Blood Blood Culture - Preliminary NO GROWTH AFTER 24 HOURS Resulted 03/06/18 19:22 Blood Blood Culture - Preliminary Resulted 03/07/18 22:30 Nasopharynx Influenza Types A,B Antigen (LAURA) - Final Complete 03/07/18 15:30 Sputum Gram Stain - Final Resulted 03/07/18 15:30 Sputum Sputum Culture - Preliminary NO GROWTH AFTER 24 HOURS Resulted 03/07/18 10:46 Indwelling Cath Urine Culture - Preliminary Mixed Gram Positive Organism Resulted Laboratory Tests 03/08/18 06:25: White Blood Count 12.0#H, Red Blood Count 4.06L, Hemoglobin 11.6L, Hematocrit 34.6L, Mean Corpuscular Volume 85, Mean Corpuscular Hemoglobin 28.7, Mean Corpuscular Hemoglobin Concent 33.6, Red Cell Distribution Width 14.1, Platelet Count 235, Mean Platelet Volume 9.1, Neutrophils (%) (Auto) , Lymphocytes (%) ( Auto) , Monocytes (%) (Auto) , Eosinophils (%) (Auto) , Basophils (%) (Auto) , Differential Total Cells Counted 100, Neutrophils % (Manual) 84H, Lymphocytes % (Manual) 8L, Monocytes % (Manual) 7, Eosinophils % (Manual) 1, Basophils % ( Manual) 0, Band Neutrophils 0, Platelet Estimate Adequate, Platelet Morphology Normal, Anisocytosis 1+, Sodium Level 140, Potassium Level 3.8, Chloride Level 104, Carbon Dioxide Level 29, Anion Gap 7, Blood Urea Nitrogen 16, Creatinine 1.2, Estimat Glomerular Filtration Rate , Glucose Level 113H, Calcium Level 8.9 , Total Bilirubin 0.6, Aspartate Amino Transf (AST/SGOT) 27, Alanine Aminotransferase (ALT/SGPT) 33, Alkaline Phosphatase 118H, Troponin I 0.000, Pro -B-Type Natriuretic Peptide 406H, Total Protein 7.0, Albumin 2.5L, Globulin 4.5 , Albumin/Globulin Ratio 0.6L Current Medications Medications (Trade) Dose Ordered Sig/Nydia Route PRN Reason Start Time Stop Time Status Last Admin Dose Admin Acetaminophen (Tylenol) 650 mg Q6H PRN ORAL Mild Pain/Temp > 100.5 03/07/18 16:45 5/10/18 16:44 03/08/18 00:52 Albuterol/ Ipratropium (Albuterol/ Ipratropium) 3 ml Q4H PRN HHN Shortness of Breath 03/07/18 06:15 03/12/18 06:14 Benazepril HCl (Lotensin) 10 mg DAILY ORAL 03/07/18 09:00 04/06/18 08:59 03/08/18 08:19 Carvedilol (Coreg) 3.125 mg EVERY 12 HOURS ORAL 03/07/18 09:00 04/06/18 08:59 03/08/18 08:18 Cefepime HCl 2 gm/ Dextrose 110 ml @ 220 mls/hr EVERY 12 HOURS IV 03/07/18 09:00 03/14/18 08:59 03/08/18 08:20 Gabapentin (Neurontin) 800 mg TID ORAL 03/07/18 09:00 04/06/18 08:59 03/08/18 12:13 Heparin Sodium (Porcine) (Heparin 5000 units/ml) 5,000 units EVERY 12 HOURS SUBQ 03/07/18 09:00 04/06/18 08:59 03/08/18 08:24 Morphine Sulfate (Morphine Sulfate) 2 mg Q4H PRN IVP MOD-SEVERE PAIN 03/07/18 09:15 03/14/18 09:14 03/08/18 08:20 Nitroglycerin (Ntg) 0.4 mg Q5M PRN SL Prn Chest Pain 03/07/18 06:15 04/06/18 06:14 Ondansetron HCl (Zofran) 4 mg Q6H PRN IVP Nausea & Vomiting 03/07/18 06:15 04/06/18 06:14 Polyethylene Glycol (Miralax) 17 gm DAILYPRN PRN ORAL Constipation 03/07/18 06:15 04/06/18 06:14 Sodium Chloride 1,000 ml @ 50 mls/hr Q20H IV 03/07/18 15:30 04/06/18 15:29 03/08/18 12:16 Temazepam (Restoril) 15 mg HSPRN PRN ORAL Insomnia 03/07/18 06:15 03/14/18 06:14 Vancomycin HCl (Vanco rx to dose) 1 ea DAILY PRN MISC Per rx protocol 03/07/18 08:30 04/06/18 08:29 Vancomycin HCl/ Dextrose 250 ml @ 166.636 mls/hr Q24H IVPB 03/08/18 10:00 03/13/18 09:59 03/08/18 10:48 Arelis Leavitt MD Mar 08, 2018 12:55
[2018-03-08] MEDS ORDERED: Excedrin Migraine tab ORAL PRN ×3 (14:30→23:00)
[2018-03-08] MEDS ORDERED: Tubing IV Secondary IV ONE (14:33)
[2018-03-08] MEDS ORDERED: 1/2 NS 1000ml IV ONE (14:33)
--- NOTE | 2018-03-08 14:33 | Cardiology Report ---
APPROVED REPORT EXAM: Two-dimensional and M-mode echocardiogram with Doppler and color Doppler. INDICATION Tachycardia M-Mode DIMENSIONS IVSd0.8 (0.7-1.1cm)Left Atrium (MM)3.2 (1.6-4.0cm) LVDd4.6 (3.5-5.6cm)Aortic Root2.5 (2.0-3.7cm) PWd1.3 (0.7-1.1cm)Aortic Cusp Exc.1.7 (1.5-2.0cm) LVDs2.8 (2.5-4.0cm) PWs1.4 cm Technically difficult study due to poor acoustical windows. Normal left ventricular chamber size, systolic function and wall motion. Left ventricular ejection fraction estimated to be 60-65%. No evidence of left ventricular hypertrophy. No evidence of pericardial or pleural effusion. Right cardiac chamber sizes are within normal limits. Mild left atrial enlargement by 2D. Focal aortic valve sclerosis with adequate cusp excursion. Thickened mitral valve leaflets with normal excursion. Mild mitral annulus and aortic root calcification. Mitral stenosis. Pulmonic valve not well visualized. Normal tricuspid valve structure. IVC dilated at 2.5 cm and collapsible with respiration indicate increased RA pressure. A color flow and spectral Doppler study was performed and revealed: No aortic regurgitation. No mitral regurgitation. Mitral P1/2 time of 45 m/s is compatible with a mitral valve area of 4.9cm2 Peak mitral valve diastolic gradient of 12mmHg and a mean gradient of 3 mmHg Mitral diastolic velocities suggest reduced left ventricular relaxation c/w diastolic dysfunction grade 1. Moderate tricuspid regurgitation. Tricuspid systolic velocities suggests peak right ventricular systolic pressure of 44 mmHg Consistent with mild pulmonary hypertension.
[2018-03-08 15:31] VITALS: BP 126/79
[2018-03-08] MEDS ORDERED: Excedrin Migraine tab ORAL ONE (17:00)
--- NOTE | 2018-03-08 17:11 | Cardiology Report ---
APPROVED REPORT EKG Measurement Heart [id number] Sinus tachycardia Nonspecific T wave abnormality Abnormal ECG
--- NOTE | 2018-03-08 19:13 | Infectious Diseases Prog Note ---
Assessment/Plan Assessment/Plan ASSESSMENT: The patient is a 72-year-old female with, Fever. SP ALOC Head CT unremarkable Normal WBC ? lower extremity cellulitis. Rule out bacteremia BC 1/2 GPC ? contaminant Rule out urinary tract infection. influenza : Neg chronically mildly AK Ph Chest x-ray, NAPD. CHF. Bilateral lymphedema Asthma/COPD Hypertension PLAN: continue the patient on vancomycin and cefepime d# 2 Monitor CBC Monitor BMP. Monitor cultures (blood, urine) Monitor chest x-ray Subjective Constitutional: Denies: no symptoms, fever, chills, fatigue, anorexia, drenching sweats, other Allergies: Coded Allergies: HYDROCODONE (Verified Allergy, Mild, 09/19/11) ACETAMINOPHEN (Unverified Allergy, Unknown, 03/06/18) Objective Vital Signs Last 24 Hour Vital Signs Date Time Temp Pulse Resp B/P (MAP) Pulse Ox O2 Delivery O2 Flow Rate FiO2 03/08/18 16:00 98 03/08/18 15:31 99.0 100 20 126/79 96 Room Air 99.0 03/08/18 14:44 98 Nasal Cannula 2.0 28 03/08/18 14:44 Nasal Cannula 2.0 28 03/08/18 13:56 101 18 Nasal Cannula 2.0 28 03/08/18 13:40 98 18 95 Nasal Cannula 2.0 28 03/08/18 13:40 98 18 Nasal Cannula 2.0 28 03/08/18 12:00 94 03/08/18 11:55 99.1 105 18 140/63 96 Room Air 99.1 03/08/18 08:19 147/82 03/08/18 08:18 103 147/82 03/08/18 08:00 97.7 101 20 147/82 97 Room Air 97.7 03/08/18 08:00 99 03/08/18 04:00 99 03/08/18 04:00 98.4 103 18 155/76 98 Room Air 98.4 03/08/18 00:00 95 03/08/18 00:00 99.9 105 20 137/77 100 Room Air 99.9 03/07/18 20:58 99 128/80 03/07/18 20:00 104 03/07/18 20:00 99.1 104 18 120/61 100 Room Air 99.1 Height (Feet): 5 Height (Inches): 2.00 Weight (Pounds): 318 HEENT: anicteric Respiratory/Chest: normal breath sounds Cardiovascular: regular rhythm Abdomen: soft, non tender Microbiology Date/Time Source Procedure Growth Status 03/06/18 19:37 Blood Blood Culture - Preliminary NO GROWTH AFTER 24 HOURS Resulted 03/06/18 19:22 Blood Blood Culture - Preliminary Resulted 03/07/18 22:30 Nasopharynx Influenza Types A,B Antigen (LAURA) - Final Complete 03/07/18 15:30 Sputum Gram Stain - Final Resulted 03/07/18 15:30 Sputum Sputum Culture - Preliminary NO GROWTH AFTER 24 HOURS Resulted 03/07/18 10:46 Indwelling Cath Urine Culture - Preliminary Mixed Gram Positive Organism Resulted Laboratory Tests Test 03/08/18 06:25 White Blood Count 12.0 K/UL (4.8-10.8) #H Red Blood Count 4.06 M/UL (4.20-5.40) L Hemoglobin 11.6 G/DL (12.0-16.0) L Hematocrit 34.6 % (37.0-47.0) L Mean Corpuscular Volume 85 FL (80-99) Mean Corpuscular Hemoglobin 28.7 PG (27.0-31.0) Mean Corpuscular Hemoglobin Concent 33.6 G/DL (32.0-36.0) Red Cell Distribution Width 14.1 % (11.6-14.8) Platelet Count 235 K/UL (150-450) Mean Platelet Volume 9.1 FL (6.5-10.1) Neutrophils (%) (Auto) % (45.0-75.0) Lymphocytes (%) (Auto) % (20.0-45.0) Monocytes (%) (Auto) % (1.0-10.0) Eosinophils (%) (Auto) % (0.0-3.0) Basophils (%) (Auto) % (0.0-2.0) Differential Total Cells Counted 100 Neutrophils % (Manual) 84 % (45-75) H Lymphocytes % (Manual) 8 % (20-45) L Monocytes % (Manual) 7 % (1-10) Eosinophils % (Manual) 1 % (0-3) Basophils % (Manual) 0 % (0-2) Band Neutrophils 0 % (0-8) Platelet Estimate Adequate Platelet Morphology Normal Anisocytosis 1+ Sodium Level 140 MMOL/L (136-145) Potassium Level 3.8 MMOL/L (3.5-5.1) Chloride Level 104 MMOL/L (98-107) Carbon Dioxide Level 29 MMOL/L (21-32) Anion Gap 7 mmol/L (5-15) Blood Urea Nitrogen 16 mg/dL (7-18) Creatinine 1.2 MG/DL (0.55-1.30) Estimat Glomerular Filtration Rate mL/min (>60) Glucose Level 113 MG/DL (74-106) H Calcium Level 8.9 MG/DL (8.5-10.1) Total Bilirubin 0.6 MG/DL (0.2-1.0) Aspartate Amino Transf (AST/SGOT) 27 U/L (15-37) Alanine Aminotransferase (ALT/SGPT) 33 U/L (12-78) Alkaline Phosphatase 118 U/L (46-116) H Troponin I 0.000 ng/mL (0.000-0.056) Pro-B-Type Natriuretic Peptide 406 pg/mL (0-125) H Total Protein 7.0 G/DL (6.4-8.2) Albumin 2.5 G/DL (3.4-5.0) L Globulin 4.5 g/dL Albumin/Globulin Ratio 0.6 (1.0-2.7) L Current Medications Medications (Trade) Dose Ordered Sig/Nydia Route PRN Reason Start Time Stop Time Status Last Admin Dose Admin Acetaminophen (Tylenol) 650 mg Q6H PRN ORAL Mild Pain/Temp > 100.5 03/07/18 16:45 04/06/18 16:44 03/08/18 00:52 Acetaminophen/ Aspirin/Caffeine (Excedrin Migraine) 2 ea Q6H PRN ORAL HEADACHE 03/08/18 17:00 04/07/18 16:59 Albuterol/ Ipratropium (Albuterol/ Ipratropium) 3 ml Q4H PRN HHN Shortness of Breath 03/07/18 06:15 03/12/18 06:14 03/08/18 13:45 Benazepril HCl (Lotensin) 10 mg DAILY ORAL 03/07/18 09:00 04/06/18 08:59 03/08/18 08:19 Carvedilol (Coreg) 3.125 mg EVERY 12 HOURS ORAL 03/07/18 09:00 04/06/18 08:59 03/08/18 08:18 Cefepime HCl 2 gm/ Dextrose 110 ml @ 220 mls/hr EVERY 12 HOURS IV 03/07/18 09:00 03/14/18 08:59 03/08/18 08:20 Gabapentin (Neurontin) 800 mg TID ORAL 03/07/18 09:00 04/06/18 08:59 03/08/18 17:07 Heparin Sodium (Porcine) (Heparin 5000 units/ml) 5,000 units EVERY 12 HOURS SUBQ 03/07/18 09:00 04/06/18 08:59 03/08/18 08:24 Morphine Sulfate (Morphine Sulfate) 2 mg Q4H PRN IVP MOD-SEVERE PAIN 03/07/18 09:15 03/14/18 09:14 03/08/18 08:20 Nitroglycerin (Ntg) 0.4 mg Q5M PRN SL Prn Chest Pain 03/07/18 06:15 04/06/18 06:14 Ondansetron HCl (Zofran) 4 mg Q6H PRN IVP Nausea & Vomiting 03/07/18 06:15 04/06/18 06:14 Polyethylene Glycol (Miralax) 17 gm DAILYPRN PRN ORAL Constipation 03/07/18 06:15 04/06/18 06:14 Sodium Chloride 1,000 ml @ 50 mls/hr Q20H IV 03/07/18 15:30 04/06/18 15:29 03/08/18 12:16 Temazepam (Restoril) 15 mg HSPRN PRN ORAL Insomnia 03/07/18 06:15 03/14/18 06:14 Vancomycin HCl (Vanco rx to dose) 1 ea DAILY PRN MISC Per rx protocol 03/07/18 08:30 04/06/18 08:29 Vancomycin HCl/ Dextrose 250 ml @ 166.636 mls/hr Q12HR@1000,2200 IVPB 03/08/18 22:00 03/13/18 21:59 Marlon Santa MD Mar 08, 2018 19:13
--- NOTE | 2018-03-08 19:53 | Cardiology Progress Note ---
Assessment/Plan Assessment/Plan 1. Altered mentation with no loss of consciousness. 2. Fevers. 3. Obesity. 4. Lymphedema. 5. Pneumonia. 6. Diabetes mellitus. 7. Hypertension tele neg trop neg echo noted ef normal mild p htn bp is better dc ivf if eating Subjective Cardiovascular: Denies: chest pain Respiratory: Reports: cough; Denies: shortness of breath Gastrointestinal/Abdominal: Denies: abdominal pain Objective Last 24 Hour Vital Signs Date Time Temp Pulse Resp B/P (MAP) Pulse Ox O2 Delivery O2 Flow Rate FiO2 03/08/18 19:20 Nasal Cannula 2.0 28 03/08/18 19:19 98 18 Nasal Cannula 2.0 28 03/08/18 19:19 97 Nasal Cannula 2.0 28 03/08/18 16:00 98 03/08/18 15:31 99.0 100 20 126/79 96 Room Air 99.0 03/08/18 14:44 98 Nasal Cannula 2.0 28 03/08/18 14:44 Nasal Cannula 2.0 28 03/08/18 13:56 101 18 Nasal Cannula 2.0 28 03/08/18 13:40 98 18 95 Nasal Cannula 2.0 28 03/08/18 13:40 98 18 Nasal Cannula 2.0 28 03/08/18 12:00 94 03/08/18 11:55 99.1 105 18 140/63 96 Room Air 99.1 03/08/18 08:19 147/82 03/08/18 08:18 103 147/82 03/08/18 08:00 97.7 101 20 147/82 97 Room Air 97.7 03/08/18 08:00 99 03/08/18 04:00 99 03/08/18 04:00 98.4 103 18 155/76 98 Room Air 98.4 03/08/18 00:00 95 03/08/18 00:00 99.9 105 20 137/77 100 Room Air 99.9 03/07/18 20:58 99 128/80 03/07/18 20:00 104 03/07/18 20:00 99.1 104 18 120/61 100 Room Air 99.1 General Appearance: alert Neck: supple Respiratory/Chest: lungs clear Abdomen: normal bowel sounds, non tender, soft Extremities: severe edema Intake and Output 03/07/18 03/08/18 19:00 07:00 Intake Total 1590 ml 1010 ml Output Total 750 ml Balance 1590 ml 260 ml Intake Oral 270 ml 200 ml IV Total 1320 ml 810 ml Output Urine Total 750 ml # Voids 3 Laboratory Tests Test 03/08/18 06:25 White Blood Count 12.0 K/UL (4.8-10.8) #H Red Blood Count 4.06 M/UL (4.20-5.40) L Hemoglobin 11.6 G/DL (12.0-16.0) L Hematocrit 34.6 % (37.0-47.0) L Mean Corpuscular Volume 85 FL (80-99) Mean Corpuscular Hemoglobin 28.7 PG (27.0-31.0) Mean Corpuscular Hemoglobin Concent 33.6 G/DL (32.0-36.0) Red Cell Distribution Width 14.1 % (11.6-14.8) Platelet Count 235 K/UL (150-450) Mean Platelet Volume 9.1 FL (6.5-10.1) Neutrophils (%) (Auto) % (45.0-75.0) Lymphocytes (%) (Auto) % (20.0-45.0) Monocytes (%) (Auto) % (1.0-10.0) Eosinophils (%) (Auto) % (0.0-3.0) Basophils (%) (Auto) % (0.0-2.0) Differential Total Cells Counted 100 Neutrophils % (Manual) 84 % (45-75) H Lymphocytes % (Manual) 8 % (20-45) L Monocytes % (Manual) 7 % (1-10) Eosinophils % (Manual) 1 % (0-3) Basophils % (Manual) 0 % (0-2) Band Neutrophils 0 % (0-8) Platelet Estimate Adequate Platelet Morphology Normal Anisocytosis 1+ Sodium Level 140 MMOL/L (136-145) Potassium Level 3.8 MMOL/L (3.5-5.1) Chloride Level 104 MMOL/L (98-107) Carbon Dioxide Level 29 MMOL/L (21-32) Anion Gap 7 mmol/L (5-15) Blood Urea Nitrogen 16 mg/dL (7-18) Creatinine 1.2 MG/DL (0.55-1.30) Estimat Glomerular Filtration Rate mL/min (>60) Glucose Level 113 MG/DL (74-106) H Calcium Level 8.9 MG/DL (8.5-10.1) Total Bilirubin 0.6 MG/DL (0.2-1.0) Aspartate Amino Transf (AST/SGOT) 27 U/L (15-37) Alanine Aminotransferase (ALT/SGPT) 33 U/L (12-78) Alkaline Phosphatase 118 U/L (46-116) H Troponin I 0.000 ng/mL (0.000-0.056) Pro-B-Type Natriuretic Peptide 406 pg/mL (0-125) H Total Protein 7.0 G/DL (6.4-8.2) Albumin 2.5 G/DL (3.4-5.0) L Globulin 4.5 g/dL Albumin/Globulin Ratio 0.6 (1.0-2.7) L Microbiology Date/Time Source Procedure Growth Status 03/06/18 19:37 Blood Blood Culture - Preliminary NO GROWTH AFTER 24 HOURS Resulted 03/06/18 19:22 Blood Blood Culture - Preliminary Resulted 03/07/18 22:30 Nasopharynx Influenza Types A,B Antigen (LAURA) - Final Complete 03/07/18 15:30 Sputum Gram Stain - Final Resulted 03/07/18 15:30 Sputum Sputum Culture - Preliminary NO GROWTH AFTER 24 HOURS Resulted 03/07/18 10:46 Indwelling Cath Urine Culture - Preliminary Mixed Gram Positive Organism Resulted BAYRON BRANHAM Mar 08, 2018 19:53
[2018-03-08 20:00] VITALS: BP 141/87
[2018-03-08] MEDS ORDERED: Nitroglycerin Subl 0.4mg tab SL PRN (21:45)
[2018-03-08] MEDS: Vancomycin 1250mg/D5W 250ml 250 ML IVPB SCH (22:00)
[2018-03-09 00:10] VITALS: BP 131/78
[2018-03-09] MEDS ORDERED: Morphine Sulfate 4mg/ml Inj IVP PRN (01:15)
[2018-03-09] MEDS: Vancomycin 1250mg/D5W 250ml 250 ML IVPB SCH ×2 (03:05→14:44)
[2018-03-09 04:48] VITALS: BP 150/90
[2018-03-09] MEDS ORDERED: Miralax 17gm pkt ORAL PRN (06:15)
[2018-03-09 07:15] LABS: BASOPHILS % (AUTO) 0.5 % (0.0-2.0); EOSINOPHILS % (AUTO) 2.6 % (0.0-3.0); HEMATOCRIT 37.1 % (37.0-47.0); HEMOGLOBIN 12.4 G/DL (12.0-16.0); LYMPHOCYTES % (AUTO) 10.2 % (20.0-45.0); MEAN CORPUSCULAR VOLUME 85 FL (80-99); MONOCYTES % (AUTO) 5.1 % (1.0-10.0); NEUTROPHILS % (AUTO) 81.6 % (45.0-75.0); PLATELET COUNT 228 K/UL (150-450); RED BLOOD COUNT 4.37 M/UL (4.20-5.40); RED CELL DISTRIBUTION WIDTH 14.3 % (11.6-14.8); WHITE BLOOD COUNT 9.2 K/UL (4.8-10.8)
[2018-03-09 07:43] LABS: ALANINE AMINOTRANSFERASE 34 U/L (12-78); ALBUMIN 2.5 G/DL (3.4-5.0); ALBUMIN/GLOBULIN RATIO 0.6 (1.0-2.7); ALKALINE PHOSPHATASE 126 U/L (46-116); ANION GAP 6 mmol/L (5-15); ASPARTATE AMINO TRANSFERASE 38 U/L (15-37); BILIRUBIN,TOTAL 0.6 MG/DL (0.2-1.0); BLOOD UREA NITROGEN 12 mg/dL (7-18); CALCIUM 8.6 MG/DL (8.5-10.1); CARBON DIOXIDE 28 MMOL/L (21-32); CHLORIDE 102 MMOL/L (98-107); CREATININE 0.9 MG/DL (0.55-1.30); PHOSPHORUS 3.9 MG/DL (2.5-4.9); POTASSIUM 5.1 MMOL/L (3.5-5.1); SODIUM 136 MMOL/L (136-145)
[2018-03-09 08:00] VITALS: BP 144/81
[2018-03-09] MEDS: Benazepril 10mg tab ORAL SCH (08:38)
[2018-03-09] MEDS: Heparin 5000 units/ml inj SUBQ SCH ×2 (08:40→20:46)
[2018-03-09] MEDS: Cefepime HCl 2 GM in D5W 110 ML IV SCH ×2 (08:43→20:18)
[2018-03-09] MEDS: Albuterol/Ipratropium 3ml neb HHN PRN ×2 (11:40→20:30)
[2018-03-09 11:58] VITALS: BP 139/71
--- NOTE | 2018-03-09 15:29 | Pulmonology Progress Note ---
Assessment/Plan Problems: (1) Sepsis (2) Acute encephalopathy (3) CHF (congestive heart failure) (4) Peripheral edema (5) Hypertension (6) Elephantiasis Assessment/Plan BC pending, GPC, staph iv abx check wbc, BC echo reviewed monitor BP symptomatic treatment dvt prophylaxis Subjective ROS Limited/Unobtainable: No Constitutional: Reports: no symptoms HEENT: Repors: no symptoms Respiratory: Reports: no symptoms Gastrointestinal/Abdominal: Reports: no symptoms Genitourinary: Reports: no symptoms Allergies: Coded Allergies: HYDROCODONE (Verified Allergy, Mild, 09/19/11) ACETAMINOPHEN (Unverified Allergy, Unknown, 03/06/18) Objective Last 24 Hour Vital Signs Date Time Temp Pulse Resp B/P (MAP) Pulse Ox O2 Delivery O2 Flow Rate FiO2 03/09/18 11:58 98.4 90 20 139/71 95 98.4 03/09/18 11:58 Room Air 03/09/18 11:50 89 20 98 Room Air 03/09/18 11:40 86 20 95 Room Air 03/09/18 09:49 95 Room Air 03/09/18 09:48 Room Air 03/09/18 09:47 87 20 Room Air 03/09/18 08:38 144/81 03/09/18 08:37 97 144/81 03/09/18 08:00 Room Air 03/09/18 08:00 99.1 97 20 144/81 96 99.1 03/09/18 04:48 98.1 88 20 150/90 94 Room Air 98.1 90 03/09/18 00:10 98.2 81 20 131/78 96 Room Air 98.2 83 03/08/18 20:53 95 141/87 03/08/18 20:00 99.3 95 20 141/87 98 Room Air 99.3 03/08/18 19:20 Nasal Cannula 2.0 28 03/08/18 19:19 98 18 Nasal Cannula 2.0 28 03/08/18 19:19 97 Nasal Cannula 2.0 28 03/08/18 16:00 98 03/08/18 15:31 99.0 100 20 126/79 96 Room Air 99.0 Intake and Output 03/08/18 03/09/18 19:00 07:00 Intake Total 1170.000 ml Output Total 1000 ml Balance 170.000 ml Intake Oral 360 ml IV Total 810.000 ml Output Urine Total 1000 ml # Voids 4 1 # Bowel Movements 1 General Appearance: no acute distress HEENT: normocephalic, atraumatic Breasts: no masses Cardiovascular: normal peripheral pulses Abdomen: normal bowel sounds, soft, non tender Genitourinary: normal external genitalia Neurologic/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 normal Microbiology Date/Time Source Procedure Growth Status 03/07/18 10:20 Blood Blood Culture - Preliminary NO GROWTH AFTER 24 HOURS Resulted 03/07/18 10:10 Blood Blood Culture - Preliminary NO GROWTH AFTER 24 HOURS Resulted 03/06/18 19:37 Blood Blood Culture - Preliminary Resulted 03/06/18 19:22 Blood Blood Culture - Preliminary Staphylococcus Sp Coag Neg Resulted 03/07/18 22:30 Nasopharynx Influenza Types A,B Antigen (LAURA) - Final Complete 03/07/18 15:30 Sputum Gram Stain - Final Complete 03/07/18 15:30 Sputum Culture - Final Jessica Albicans Usual Respiratory Rajni Complete 03/07/18 10:46 Indwelling Cath Urine Culture - Final Mixed Gram Positive Organism Complete Laboratory Tests 03/09/18 05:00: White Blood Count 9.2, Red Blood Count 4.37, Hemoglobin 12.4, Hematocrit 37.1, Mean Corpuscular Volume 85, Mean Corpuscular Hemoglobin 28.3, Mean Corpuscular Hemoglobin Concent 33.3, Red Cell Distribution Width 14.3, Platelet Count 228, Mean Platelet Volume 9.6, Neutrophils (%) (Auto) 81.6H, Lymphocytes (%) (Auto) 10.2L, Monocytes (%) (Auto) 5.1, Eosinophils (%) (Auto) 2.6, Basophils (%) (Auto ) 0.5, Sodium Level 136, Potassium Level 5.1, Chloride Level 102, Carbon Dioxide Level 28, Anion Gap 6, Blood Urea Nitrogen 12, Creatinine 0.9, Estimat Glomerular Filtration Rate , Glucose Level 207H, Calcium Level 8.6, Phosphorus Level 3.9, Magnesium Level 1.9, Total Bilirubin 0.6, Aspartate Amino Transf (AST /SGOT) 38H, Alanine Aminotransferase (ALT/SGPT) 34, Alkaline Phosphatase 126H, Total Protein 6.8, Albumin 2.5L, Globulin 4.3, Albumin/Globulin Ratio 0.6L 03/09/18 15:20: Lactic Acid Level [Pending] Current Medications Medications (Trade) Dose Ordered Sig/Nydia Route PRN Reason Start Time Stop Time Status Last Admin Dose Admin Acetaminophen (Tylenol) 650 mg Q6H PRN ORAL Mild Pain/Temp > 100.5 03/08/18 22:45 04/06/18 16:44 Acetaminophen/ Aspirin/Caffeine (Excedrin Migraine) 2 ea Q6H PRN ORAL HEADACHE 03/08/18 23:00 04/07/18 16:59 Albuterol/ Ipratropium (Albuterol/ Ipratropium) 3 ml Q4H PRN HHN Shortness of Breath 03/08/18 22:15 03/12/18 06:14 03/09/18 11:40 Benazepril HCl (Lotensin) 10 mg DAILY ORAL 03/09/18 09:00 04/06/18 08:59 03/09/18 08:38 Carvedilol (Coreg) 3.125 mg EVERY 12 HOURS ORAL 03/09/18 09:00 04/06/18 08:59 03/09/18 08:37 Cefepime HCl 2 gm/ Dextrose 110 ml @ 220 mls/hr EVERY 12 HOURS IV 03/09/18 09:00 03/14/18 08:59 03/09/18 08:43 Gabapentin (Neurontin) 800 mg TID ORAL 03/09/18 09:00 04/06/18 08:59 03/09/18 13:02 Heparin Sodium (Porcine) (Heparin 5000 units/ml) 5,000 units EVERY 12 HOURS SUBQ 03/09/18 09:00 04/06/18 08:59 03/09/18 08:40 Morphine Sulfate (Morphine Sulfate) 2 mg Q4H PRN IVP MOD-SEVERE PAIN 03/09/18 01:15 03/14/18 09:14 Nitroglycerin (Ntg) 0.4 mg Q5M PRN SL Prn Chest Pain 03/08/18 21:45 04/06/18 06:14 Ondansetron HCl (Zofran) 4 mg Q6H PRN IVP Nausea & Vomiting 03/09/18 00:15 04/06/18 06:14 Polyethylene Glycol (Miralax) 17 gm DAILYPRN PRN ORAL Constipation 03/09/18 06:15 04/06/18 06:14 Sodium Chloride 1,000 ml @ 50 mls/hr Q20H IV 03/08/18 21:45 04/06/18 15:29 Temazepam (Restoril) 15 mg HSPRN PRN ORAL Insomnia 03/09/18 03:20 03/14/18 03:19 03/09/18 03:24 Vancomycin HCl (Vanco rx to dose) 1 ea DAILY PRN MISC Per rx protocol 03/09/18 09:00 04/06/18 08:29 Vancomycin HCl/ Dextrose 250 ml @ 166.636 mls/hr Q12HR@0300,1500 IVPB 03/09/18 15:00 03/14/18 14:59 03/09/18 14:44 Arelis Leavitt MD Mar 09, 2018 15:29
[2018-03-09 15:58] VITALS: BP 148/80
--- NOTE | 2018-03-09 19:19 | Cardiology Progress Note ---
Assessment/Plan Assessment/Plan 1. Altered mentation with no loss of consciousness. 2. Fevers. 3. Obesity. 4. Lymphedema. 5. Pneumonia. 6. Diabetes mellitus. 7. Hypertension tele neg trop neg echo noted ef normal mild p htn bp is better dc ivf Subjective Cardiovascular: Denies: chest pain Respiratory: Reports: shortness of breath Gastrointestinal/Abdominal: Denies: abdominal pain Genitourinary: Denies: burning Objective Last 24 Hour Vital Signs Date Time Temp Pulse Resp B/P (MAP) Pulse Ox O2 Delivery O2 Flow Rate FiO2 03/09/18 15:58 Room Air 03/09/18 15:58 99.1 93 20 148/80 96 99.1 03/09/18 11:58 98.4 90 20 139/71 95 98.4 03/09/18 11:58 Room Air 03/09/18 11:50 89 20 98 Room Air 03/09/18 11:40 86 20 95 Room Air 03/09/18 09:49 95 Room Air 03/09/18 09:48 Room Air 03/09/18 09:47 87 20 Room Air 03/09/18 08:38 144/81 03/09/18 08:37 97 144/81 03/09/18 08:00 Room Air 03/09/18 08:00 99.1 97 20 144/81 96 99.1 03/09/18 04:48 98.1 88 20 150/90 94 Room Air 98.1 90 03/09/18 00:10 98.2 81 20 131/78 96 Room Air 98.2 83 03/08/18 20:53 95 141/87 03/08/18 20:00 99.3 95 20 141/87 98 Room Air 99.3 03/08/18 19:20 Nasal Cannula 2.0 28 03/08/18 19:19 98 18 Nasal Cannula 2.0 28 03/08/18 19:19 97 Nasal Cannula 2.0 28 General Appearance: no apparent distress, alert Neck: no JVD Respiratory/Chest: expiratory wheezing Abdomen: normal bowel sounds, non tender, soft Extremities: severe edema Intake and Output 03/08/18 03/09/18 19:00 07:00 Intake Total 1170.000 ml Output Total 1000 ml Balance 170.000 ml Intake Oral 360 ml IV Total 810.000 ml Output Urine Total 1000 ml # Voids 4 1 # Bowel Movements 1 Laboratory Tests Test 03/09/18 05:00 03/09/18 15:20 White Blood Count 9.2 K/UL (4.8-10.8) Red Blood Count 4.37 M/UL (4.20-5.40) Hemoglobin 12.4 G/DL (12.0-16.0) Hematocrit 37.1 % (37.0-47.0) Mean Corpuscular Volume 85 FL (80-99) Mean Corpuscular Hemoglobin 28.3 PG (27.0-31.0) Mean Corpuscular Hemoglobin Concent 33.3 G/DL (32.0-36.0) Red Cell Distribution Width 14.3 % (11.6-14.8) Platelet Count 228 K/UL (150-450) Mean Platelet Volume 9.6 FL (6.5-10.1) Neutrophils (%) (Auto) 81.6 % (45.0-75.0) H Lymphocytes (%) (Auto) 10.2 % (20.0-45.0) L Monocytes (%) (Auto) 5.1 % (1.0-10.0) Eosinophils (%) (Auto) 2.6 % (0.0-3.0) Basophils (%) (Auto) 0.5 % (0.0-2.0) Sodium Level 136 MMOL/L (136-145) Potassium Level 5.1 MMOL/L (3.5-5.1) Chloride Level 102 MMOL/L (98-107) Carbon Dioxide Level 28 MMOL/L (21-32) Anion Gap 6 mmol/L (5-15) Blood Urea Nitrogen 12 mg/dL (7-18) Creatinine 0.9 MG/DL (0.55-1.30) Estimat Glomerular Filtration Rate mL/min (>60) Glucose Level 207 MG/DL (74-106) H Calcium Level 8.6 MG/DL (8.5-10.1) Phosphorus Level 3.9 MG/DL (2.5-4.9) Magnesium Level 1.9 MG/DL (1.8-2.4) Total Bilirubin 0.6 MG/DL (0.2-1.0) Aspartate Amino Transf (AST/SGOT) 38 U/L (15-37) H Alanine Aminotransferase (ALT/SGPT) 34 U/L (12-78) Alkaline Phosphatase 126 U/L (46-116) H Total Protein 6.8 G/DL (6.4-8.2) Albumin 2.5 G/DL (3.4-5.0) L Globulin 4.3 g/dL Albumin/Globulin Ratio 0.6 (1.0-2.7) L Lactic Acid Level 1.40 mmol/L (0.66-2.22) Microbiology Date/Time Source Procedure Growth Status 03/07/18 10:20 Blood Blood Culture - Preliminary NO GROWTH AFTER 24 HOURS Resulted 03/07/18 10:10 Blood Blood Culture - Preliminary NO GROWTH AFTER 24 HOURS Resulted 03/06/18 19:37 Blood Blood Culture - Preliminary Resulted 03/06/18 19:22 Blood Blood Culture - Preliminary Staphylococcus Sp Coag Neg Resulted 03/07/18 22:30 Nasopharynx Influenza Types A,B Antigen (LAURA) - Final Complete 03/07/18 15:30 Sputum Gram Stain - Final Complete 03/07/18 15:30 Sputum Culture - Final Jessica Albicans Usual Respiratory Rajni Complete 03/07/18 10:46 Indwelling Cath Urine Culture - Final Mixed Gram Positive Organism Complete BAYRON BRANHAM Mar 09, 2018 19:19
--- NOTE | 2018-03-09 19:50 | Infectious Diseases Prog Note ---
Assessment/Plan Assessment/Plan ASSESSMENT: The patient is a 72-year-old female with, Fever, SP ? source SP ALOC Head CT unremarkable Normal WBC ? lower extremity cellulitis. Rule out bacteremia BC 1/2 CoNS and GPR , ? contaminant Rule out urinary tract infection. influenza : Neg chronically mildly AK Ph no evid of Pneum Chest x-ray, NAPD. SCx: NL Fl and yeast CHF. Bilateral lymphedema Asthma/COPD Hypertension PLAN: continue the patient on vancomycin and cefepime d# 3 for now Monitor CBC Monitor BMP. Monitor cultures (blood, urine) Monitor chest x-ray Subjective Allergies: Coded Allergies: HYDROCODONE (Verified Allergy, Mild, 09/19/11) ACETAMINOPHEN (Unverified Allergy, Unknown, 03/06/18) Subjective Afebrile Objective Vital Signs Last 24 Hour Vital Signs Date Time Temp Pulse Resp B/P (MAP) Pulse Ox O2 Delivery O2 Flow Rate FiO2 03/09/18 15:58 Room Air 03/09/18 15:58 99.1 93 20 148/80 96 99.1 03/09/18 11:58 98.4 90 20 139/71 95 98.4 03/09/18 11:58 Room Air 03/09/18 11:50 89 20 98 Room Air 03/09/18 11:40 86 20 95 Room Air 03/09/18 09:49 95 Room Air 03/09/18 09:48 Room Air 03/09/18 09:47 87 20 Room Air 03/09/18 08:38 144/81 03/09/18 08:37 97 144/81 03/09/18 08:00 Room Air 03/09/18 08:00 99.1 97 20 144/81 96 99.1 03/09/18 04:48 98.1 88 20 150/90 94 Room Air 98.1 90 03/09/18 00:10 98.2 81 20 131/78 96 Room Air 98.2 83 03/08/18 20:53 95 141/87 03/08/18 20:00 99.3 95 20 141/87 98 Room Air 99.3 Height (Feet): 5 Height (Inches): 2.00 Weight (Pounds): 318 HEENT: atraumatic Respiratory/Chest: lungs clear Cardiovascular: regular rhythm Abdomen: non distended Microbiology Date/Time Source Procedure Growth Status 03/07/18 10:20 Blood Blood Culture - Preliminary NO GROWTH AFTER 24 HOURS Resulted 03/07/18 10:10 Blood Blood Culture - Preliminary NO GROWTH AFTER 24 HOURS Resulted 03/07/18 22:30 Nasopharynx Influenza Types A,B Antigen (LAURA) - Final Complete 03/07/18 15:30 Sputum Gram Stain - Final Complete 03/07/18 15:30 Sputum Culture - Final Jessica Albicans Usual Respiratory Rajni Complete 03/07/18 10:46 Indwelling Cath Urine Culture - Final Mixed Gram Positive Organism Complete Laboratory Tests Test 03/09/18 05:00 03/09/18 15:20 White Blood Count 9.2 K/UL (4.8-10.8) Red Blood Count 4.37 M/UL (4.20-5.40) Hemoglobin 12.4 G/DL (12.0-16.0) Hematocrit 37.1 % (37.0-47.0) Mean Corpuscular Volume 85 FL (80-99) Mean Corpuscular Hemoglobin 28.3 PG (27.0-31.0) Mean Corpuscular Hemoglobin Concent 33.3 G/DL (32.0-36.0) Red Cell Distribution Width 14.3 % (11.6-14.8) Platelet Count 228 K/UL (150-450) Mean Platelet Volume 9.6 FL (6.5-10.1) Neutrophils (%) (Auto) 81.6 % (45.0-75.0) H Lymphocytes (%) (Auto) 10.2 % (20.0-45.0) L Monocytes (%) (Auto) 5.1 % (1.0-10.0) Eosinophils (%) (Auto) 2.6 % (0.0-3.0) Basophils (%) (Auto) 0.5 % (0.0-2.0) Sodium Level 136 MMOL/L (136-145) Potassium Level 5.1 MMOL/L (3.5-5.1) Chloride Level 102 MMOL/L (98-107) Carbon Dioxide Level 28 MMOL/L (21-32) Anion Gap 6 mmol/L (5-15) Blood Urea Nitrogen 12 mg/dL (7-18) Creatinine 0.9 MG/DL (0.55-1.30) Estimat Glomerular Filtration Rate mL/min (>60) Glucose Level 207 MG/DL (74-106) H Calcium Level 8.6 MG/DL (8.5-10.1) Phosphorus Level 3.9 MG/DL (2.5-4.9) Magnesium Level 1.9 MG/DL (1.8-2.4) Total Bilirubin 0.6 MG/DL (0.2-1.0) Aspartate Amino Transf (AST/SGOT) 38 U/L (15-37) H Alanine Aminotransferase (ALT/SGPT) 34 U/L (12-78) Alkaline Phosphatase 126 U/L (46-116) H Total Protein 6.8 G/DL (6.4-8.2) Albumin 2.5 G/DL (3.4-5.0) L Globulin 4.3 g/dL Albumin/Globulin Ratio 0.6 (1.0-2.7) L Lactic Acid Level 1.40 mmol/L (0.66-2.22) Current Medications Medications (Trade) Dose Ordered Sig/Nydia Route PRN Reason Start Time Stop Time Status Last Admin Dose Admin Acetaminophen (Tylenol) 650 mg Q6H PRN ORAL Mild Pain/Temp > 100.5 03/08/18 22:45 04/06/18 16:44 Acetaminophen/ Aspirin/Caffeine (Excedrin Migraine) 2 ea Q6H PRN ORAL HEADACHE 03/08/18 23:00 04/07/18 16:59 Albuterol/ Ipratropium (Albuterol/ Ipratropium) 3 ml Q4H PRN HHN Shortness of Breath 03/08/18 22:15 03/12/18 06:14 03/09/18 11:40 Benazepril HCl (Lotensin) 10 mg DAILY ORAL 03/09/18 09:00 04/06/18 08:59 03/09/18 08:38 Carvedilol (Coreg) 3.125 mg EVERY 12 HOURS ORAL 03/09/18 09:00 04/06/18 08:59 03/09/18 08:37 Cefepime HCl 2 gm/ Dextrose 110 ml @ 220 mls/hr EVERY 12 HOURS IV 03/09/18 09:00 03/14/18 08:59 03/09/18 08:43 Gabapentin (Neurontin) 800 mg TID ORAL 03/09/18 09:00 04/06/18 08:59 03/09/18 18:23 Heparin Sodium (Porcine) (Heparin 5000 units/ml) 5,000 units EVERY 12 HOURS SUBQ 03/09/18 09:00 04/06/18 08:59 03/09/18 08:40 Morphine Sulfate (Morphine Sulfate) 2 mg Q4H PRN IVP MOD-SEVERE PAIN 03/09/18 01:15 03/14/18 09:14 Nitroglycerin (Ntg) 0.4 mg Q5M PRN SL Prn Chest Pain 03/08/18 21:45 04/06/18 06:14 Ondansetron HCl (Zofran) 4 mg Q6H PRN IVP Nausea & Vomiting 03/09/18 00:15 04/06/18 06:14 Polyethylene Glycol (Miralax) 17 gm DAILYPRN PRN ORAL Constipation 03/09/18 06:15 04/06/18 06:14 Temazepam (Restoril) 15 mg HSPRN PRN ORAL Insomnia 03/09/18 03:20 03/14/18 03:19 03/09/18 03:24 Vancomycin HCl (Vanco rx to dose) 1 ea DAILY PRN MISC Per rx protocol 03/09/18 09:00 04/06/18 08:29 Vancomycin HCl/ Dextrose 250 ml @ 166.636 mls/hr Q12HR@0300,1500 IVPB 03/09/18 15:00 03/14/18 14:59 03/09/18 14:44 Marlon Santa MD Mar 09, 2018 19:50
[2018-03-09 20:09] VITALS: BP 141/78
[2018-03-10 00:03] VITALS: BP 136/76
[2018-03-10] MEDS: Vancomycin 1250mg/D5W 250ml 250 ML IVPB SCH (02:33)
[2018-03-10 08:00] VITALS: BP 156/90
[2018-03-10] MEDS: Cefepime HCl 2 GM in D5W 110 ML IV SCH (08:23)
[2018-03-10] MEDS: Benazepril 10mg tab ORAL SCH (08:23)
[2018-03-10] MEDS: Heparin 5000 units/ml inj SUBQ SCH (08:25)
[2018-03-10 09:08] LABS: ANION GAP 6 mmol/L (5-15); BLOOD UREA NITROGEN 11 mg/dL (7-18); CALCIUM 8.9 MG/DL (8.5-10.1); CARBON DIOXIDE 30 MMOL/L (21-32); CHLORIDE 104 MMOL/L (98-107); POTASSIUM 3.9 MMOL/L (3.5-5.1); SODIUM 140 MMOL/L (136-145)
[2018-03-10 11:31] VITALS: BP 127/69
--- NOTE | 2018-03-10 11:54 | Infectious Diseases Prog Note ---
Assessment/Plan Assessment/Plan ASSESSMENT: The patient is a 72-year-old female with, Fever, SP ? source SP ALOC Head CT unremarkable Normal WBC ? lower extremity cellulitis. Rule out bacteremia BC 1/2 CoNS and GPR , ? contaminant no evid fof urinary tract infection.: UCX: mixred GNR influenza : Neg chronically mildly AK Ph no evid of Pneum Chest x-ray, NAPD. SCx: NL Fl and yeast CHF. Bilateral lymphedema Asthma/COPD Hypertension PLAN: continue the patient on vancomycin and cefepime d# 4 , upon DC will change to Bactrim and Keflex x 5 ( Rx in chart ) Monitor CBC Monitor BMP. Monitor cultures (blood) Monitor chest x-ray DW PCP Subjective Allergies: Coded Allergies: HYDROCODONE (Verified Allergy, Mild, 09/19/11) ACETAMINOPHEN (Unverified Allergy, Unknown, 03/06/18) Subjective possible DC today Afebrile Objective Vital Signs Last 24 Hour Vital Signs Date Time Temp Pulse Resp B/P (MAP) Pulse Ox O2 Delivery O2 Flow Rate FiO2 03/10/18 11:31 97.8 89 18 127/69 99 97.8 03/10/18 08:23 90 156/90 03/10/18 08:23 156/90 03/10/18 08:00 97.9 90 18 156/90 99 97.9 03/10/18 04:32 97.9 86 22 92 97.9 86 03/10/18 00:03 97.0 76 23 136/76 93 97.0 03/09/18 20:44 94 141/78 03/09/18 20:34 86 20 97 Room Air 21 03/09/18 20:33 84 20 92 Room Air 21 03/09/18 20:09 97.9 94 24 141/78 95 Room Air 97.9 94 03/09/18 19:30 94 Room Air 21 03/09/18 19:30 84 20 Room Air 21 03/09/18 19:30 Room Air 21 03/09/18 15:58 Room Air 03/09/18 15:58 99.1 93 20 148/80 96 99.1 03/09/18 11:58 98.4 90 20 139/71 95 98.4 03/09/18 11:58 Room Air Height (Feet): 5 Height (Inches): 2.00 Weight (Pounds): 315 HEENT: anicteric Respiratory/Chest: no respiratory distress Cardiovascular: regular rhythm Abdomen: no organomegaly Microbiology Date/Time Source Procedure Growth Status 03/07/18 22:30 Nasopharynx Influenza Types A,B Antigen (LAURA) - Final Complete 03/07/18 15:30 Sputum Gram Stain - Final Complete 03/07/18 15:30 Sputum Culture - Final Jessica Albicans Usual Respiratory Rajni Complete Laboratory Tests Test 03/09/18 15:20 03/10/18 08:20 Lactic Acid Level 1.40 mmol/L (0.66-2.22) Sodium Level 140 MMOL/L (136-145) Potassium Level 3.9 MMOL/L (3.5-5.1) Chloride Level 104 MMOL/L (98-107) Carbon Dioxide Level 30 MMOL/L (21-32) Anion Gap 6 mmol/L (5-15) Blood Urea Nitrogen 11 mg/dL (7-18) Creatinine 1.0 MG/DL (0.55-1.30) Estimat Glomerular Filtration Rate mL/min (>60) Glucose Level 136 MG/DL (74-106) H Calcium Level 8.9 MG/DL (8.5-10.1) Current Medications Medications (Trade) Dose Ordered Sig/Nydia Route PRN Reason Start Time Stop Time Status Last Admin Dose Admin Acetaminophen (Tylenol) 650 mg Q6H PRN ORAL Mild Pain/Temp > 100.5 03/08/18 22:45 04/06/18 16:44 Acetaminophen/ Aspirin/Caffeine (Excedrin Migraine) 2 ea Q6H PRN ORAL HEADACHE 03/08/18 23:00 04/07/18 16:59 Albuterol/ Ipratropium (Albuterol/ Ipratropium) 3 ml Q4H PRN HHN Shortness of Breath 03/08/18 22:15 03/12/18 06:14 03/09/18 20:30 Benazepril HCl (Lotensin) 10 mg DAILY ORAL 03/09/18 09:00 04/06/18 08:59 03/10/18 08:23 Carvedilol (Coreg) 3.125 mg EVERY 12 HOURS ORAL 03/09/18 09:00 04/06/18 08:59 03/10/18 08:23 Cefepime HCl 2 gm/ Dextrose 110 ml @ 220 mls/hr EVERY 12 HOURS IV 4/12/18 09:00 03/14/18 08:59 03/10/18 08:23 Gabapentin (Neurontin) 800 mg TID ORAL 03/09/18 09:00 04/06/18 08:59 03/10/18 08:23 Heparin Sodium (Porcine) (Heparin 5000 units/ml) 5,000 units EVERY 12 HOURS SUBQ 03/09/18 09:00 04/06/18 08:59 03/10/18 08:25 Morphine Sulfate (Morphine Sulfate) 2 mg Q4H PRN IVP MOD-SEVERE PAIN 03/09/18 01:15 03/14/18 09:14 Nitroglycerin (Ntg) 0.4 mg Q5M PRN SL Prn Chest Pain 03/08/18 21:45 04/06/18 06:14 Ondansetron HCl (Zofran) 4 mg Q6H PRN IVP Nausea & Vomiting 03/09/18 00:15 04/06/18 06:14 Polyethylene Glycol (Miralax) 17 gm DAILYPRN PRN ORAL Constipation 03/09/18 06:15 04/06/18 06:14 Temazepam (Restoril) 15 mg HSPRN PRN ORAL Insomnia 03/09/18 03:20 03/14/18 03:19 03/09/18 03:24 Vancomycin HCl (Vanco rx to dose) 1 ea DAILY PRN MISC Per rx protocol 03/09/18 09:00 04/06/18 08:29 Vancomycin HCl/ Dextrose 250 ml @ 166.636 mls/hr Q12HR@0300,1500 IVPB 03/09/18 15:00 03/14/18 14:59 03/10/18 02:33 Marlon Santa MD Mar 10, 2018 11:54
[2018-03-10] MEDS ORDERED: BACTRIM-DS1 EA ORAL (13:26)
[2018-03-10] MEDS ORDERED: CEPHALEXIN500 MG ORAL (13:27)
--- NOTE | 2018-03-10 15:33 | Pulmonology Progress Note ---
Assessment/Plan Problems: (1) Sepsis (2) Acute encephalopathy (3) CHF (congestive heart failure) (4) Peripheral edema (5) Hypertension (6) Elephantiasis Assessment/Plan iv abx, switch to oral check wbc, BC echo reviewed monitor BP symptomatic treatment dvt prophylaxis dc home with oral abx Subjective ROS Limited/Unobtainable: No Constitutional: Reports: no symptoms HEENT: Repors: no symptoms Allergies: Coded Allergies: HYDROCODONE (Verified Allergy, Mild, 09/19/11) ACETAMINOPHEN (Unverified Allergy, Unknown, 03/06/18) Objective Last 24 Hour Vital Signs Date Time Temp Pulse Resp B/P (MAP) Pulse Ox O2 Delivery O2 Flow Rate FiO2 03/10/18 11:31 97.8 89 18 127/69 99 97.8 03/10/18 08:23 90 156/90 03/10/18 08:23 156/90 03/10/18 08:00 97.9 90 18 156/90 99 97.9 03/10/18 04:32 97.9 86 22 92 97.9 86 03/10/18 00:03 97.0 76 23 136/76 93 97.0 03/09/18 20:44 94 141/78 03/09/18 20:34 86 20 97 Room Air 21 03/09/18 20:33 84 20 92 Room Air 21 03/09/18 20:09 97.9 94 24 141/78 95 Room Air 97.9 94 03/09/18 19:30 94 Room Air 21 03/09/18 19:30 84 20 Room Air 21 03/09/18 19:30 Room Air 21 03/09/18 15:58 Room Air 03/09/18 15:58 99.1 93 20 148/80 96 99.1 Intake and Output 03/09/18 03/10/18 19:00 07:00 Intake Total 530 ml Output Total 1000 ml Balance 530 ml -1000 ml Intake Oral 480 ml IV Total 50 ml Output Urine Total 1000 ml # Voids 3 General Appearance: WD/WN HEENT: normocephalic, anicteric Respiratory/Chest: chest wall non-tender, lungs clear Abdomen: normal bowel sounds, soft, non tender Genitourinary: normal external genitalia Extremities: no clubbing Neurologic/Psychiatric: per diem nurse II-XII grossly normal, abnormal gait Microbiology Date/Time Source Procedure Growth Status 03/07/18 22:30 Nasopharynx Influenza Types A,B Antigen (LAURA) - Final Complete Laboratory Tests 03/10/18 08:20: Sodium Level 140, Potassium Level 3.9, Chloride Level 104, Carbon Dioxide Level 30, Anion Gap 6, Blood Urea Nitrogen 11, Creatinine 1.0, Estimat Glomerular Filtration Rate , Glucose Level 136H, Calcium Level 8.9 03/10/18 14:10: Vancomycin Level Trough 15.5H Arelis Leavitt MD Mar 10, 2018 15:33
--- NOTE | 2018-03-11 10:21 | Discharge Summary ---
Discharge Summary Discharge Summary Discharge Summary DATE OF ADMISSION: 03/06/2018 DATE OF DISCHARGE: 03/10/2018 REASON FOR ADMISSION: 72 years old female with history of hypertension, asthma/COPD, presented to emergency department with altered level of consciousness and generalized weakness. Upon evaluation patient had fever of 103, heart rate- 122, blood pressure -150/100. Troponin was negative. EKG showed sinus rhythm with [id number], no acute ischemic changes . CT of the head revealed no acute intracranial pathology. Chest x-ray showed possible right parenchymal disease. No leukocytosis. Stable electrolytes. Lactic acid -3.0 . Troponin negative, pro BNP- 88. Patient was admitted with diagnosis of altered mental status, sepsis, hypertension, possible pneumonia. CONSULTANTS: assembly associate Dr. Purclel ID specialist Dr. Santa division roadmaster/oncologist HOSPITAL COURSE: Patient was admitted. Patient started on gentle IV hydration. Patient pancultured and started on empiric antibiotic. ID specialist closely followed. Initial blood culture 01/01 showed Staphylococcus coagulase negative. Repeated blood culture on 03/07 and 03/09 were negative. Urine culture revealed mixed gram -positive organisms. Sputum culture showed Jessica, likely colonized. Influenza screen was negative. Follow-up chest x-ray revealed no acute cardiopulmonary pathology. Initially no leukocytosis. However later patient developed leukocytosis and had a fever for additional day. Patient was on empiric IV antibiotics. Patient morbidly obese with bilateral lower extremities lymphedema. Per ID, patient had possible lower extremities cellulitis , based on clinical presentation. Patient was switched to oral antibiotics upon discharge to complete the course of antibiotics. Motor Coach Driver closely followed. Serial troponin were negative. EKG showed no acute ischemic changes. Echocardiogram revealed preserved ejection fraction of 60-65% and right ventricular systolic pressure of 44 consistent with mild pulmonary hypertension. Blood pressure was managed with beta colin and RASHMI inhibitor. Blood pressure improved. DVT prophylaxis provided. Pain management was addressed as needed. Symptomatic treatment provided. Bowel regimen instituted. Fever resolved, leukocytosis resolved . Patient symptomatically improved . Mental status back to baseline. Altered mental status was likely secondary to infectious process. Patient was stable for discharge home with home health services FINAL DIAGNOSES: Acute encephalopathy Sepsis Bilateral lymphedema Possible lower extremities cellulitis Hypertension CHF COPD/asthma DISCHARGE MEDICATIONS: See Medication Reconciliation list. DISCHARGE INSTRUCTIONS: Patient was discharged home with home health services. Patient to follow-up with primary care provider in one week I have been assigned to dictate discharge summary for this account. I was not involved in the patient's management. Izzy Fisher NP ([place]) Mar 11, 2018 10:20
== END 2018-03-10 15:17 | disposition home or self-care (01) | DRG 871 ==
LOC: EDBD 18:30 → EMR 19:09 → 2E 21:56 → EDBEDREQ 22:55 → 2E 03-07 00:24 → 4W 03-08 21:43
DX: A41.9 Sepsis, unspecified organism (principal); G93.40 Encephalopathy, unspecified; J18.9 Pneumonia, unspecified organism; L03.116 Cellulitis of left lower limb; L03.115 Cellulitis of right lower limb; I50.32 Chronic diastolic (congestive) heart failure; Z68.43 Body mass index [BMI] 50.0-59.9, adult; I11.0 Hypertensive heart disease with heart failure; I89.0 Lymphedema, not elsewhere classified; Z88.6 Allergy status to analgesic agent; E66.01 Morbid (severe) obesity due to excess calories; J44.9 Chronic obstructive pulmonary disease, unspecified; E11.9 Type 2 diabetes mellitus without complications; Z86.718 Personal history of other venous thrombosis and embolism; Z87.891 Personal history of nicotine dependence
CPT/HCPCS: 36415; 70450; 71045; 80048; 80053; 80202; 81001; 82550; 83605; 83735; 83880; 84100; 84484; 85007; 85025; 85610; 85730; 86710; 87040; 87070; 87086; 87181; 87205; 93005; 93306; 94640; 94664; 94760; 99285; J7620

== ENCOUNTER 2019-10-26 23:59 | Emergency (ER) | payer MEDICARE ==
[~2019-10-26] VITALS: Ht 162.6 cm; Wt 163.3 kg
[~2019-10-26 23:59] MED LIST changes: +BACTRIM-DS1 EA ORAL; +BENAZEPRIL HCL10 MG ORAL; +CARBAMAZEPINE200 M3 ORAL; +CEPHALEXIN500 MG ORAL; +HYDROCODON-ACE1 EA13 ORAL; +OMEPRAZOLE40 M1 ORAL; +PROVENTIL HFA6.7 G1 IH; +[UNRECOGNIZED DRUG - CODE] PO
[2019-10-27 00:18] VITALS: BP 155/79
--- NOTE | 2019-10-27 00:28 | Emergency Room Report ---
History of Present Illness General Chief Complaint: Edema Source: Patient Present Illness HPI 74-year-old female with chronic lymphedema in bilateral lower extremities, asthma, hypertension who presents to emergency room with new onset, 2 days of worsening left lower extremity swelling and pain over lower calf fold. Denies any fevers, shortness of breath, chest pain. Patient's family member has been good with wound care and keeping areas clean and dry. Patient denies any discharge from fold. Allergies: Coded Allergies: HYDROCODONE (Verified Allergy, Mild, 09/19/11) ACETAMINOPHEN (Unverified Allergy, Unknown, 03/06/18) Patient History Last Menstrual Period: n/a Nursing Documentation-[facility] Past Medical History: No History, Except For Hx Cardiac Problems: Yes - CHF Hx Hypertension: Yes Hx Pacemaker: No Hx Asthma: Yes Hx COPD: Yes Hx Diabetes: No Hx Cancer: No Hx Gastrointestinal Problems: Yes - GERD Hx Dialysis: No Hx Neurological Problems: No Hx Cerebrovascular Accident: No Review of Systems Constitutional: Denies: chills, fever Respiratory: Denies: cough, shortness of breath Cardiovascular: Denies: chest pain, palpitations Gastrointestinal: Denies: diarrhea, vomiting Genitourinary: Denies: hematuria, pain Musculoskeletal: Reports: other - leg edema; Denies: joint swelling Skin: Denies: rash, lesions Neurological: Denies: headache, dizziness Physical Exam Vital Signs Date Time Temp Pulse Resp B/P (MAP) Pulse Ox O2 Delivery O2 Flow Rate FiO2 10/27/19 00:14 99.3 100 18 155/79 (104) 97 Room Air Sp02 EP Interpretation: reviewed General Appearance: well appearing, no apparent distress, non-toxic Head: normocephalic, atraumatic Eyes: bilateral eye normal inspection ENT: hearing grossly normal, EOM grossly intact, moist mucus membranes Neck: supple Respiratory: lungs clear, normal breath sounds, no respiratory distress, speaking full sentences Cardiovascular #1: regular rate, rhythm, normal capillary refill Cardiovascular #2: 2+ radial (R), 2+ radial (L) Gastrointestinal: soft, non-distended Rectal: deferred Musculoskeletal: moves extm spontaneously, other - 4 + nonpitting LE edema. mild erythema over right ankle over skin fold. no discharge, no drainage. no ulceration Neurologic: grossly normal Psychiatric: mood/affect normal Skin: warm/dry, normal turgor Medical Decision Making Diagnostic Impression: Primary Impression: Edema ER Course Patient's bedside ultrasound showed no signs of deep venous thrombosis. Patient 's lab work showed no signs of elevated proBNP concerning for congestive heart failure. Patient symptoms likely secondary to start of cellulitis. Patient has mild edema but no WBC elevation. Patient is stable for outpatient follow- up. Recommend oral antibiotics at this time. And informed family of warning signs and when to return such as fever, increasing pain, or worsening swelling or redness to leg. Laboratory Tests Test 10/27/19 00:18 White Blood Count 8.8 K/UL (4.8-10.8) Red Blood Count 4.85 M/UL (4.20-5.40) Hemoglobin 11.7 G/DL (12.0-16.0) L Hematocrit 37.1 % (37.0-47.0) Mean Corpuscular Volume 76 FL (80-99) L Mean Corpuscular Hemoglobin 24.1 PG (27.0-31.0) L Mean Corpuscular Hemoglobin Concent 31.6 G/DL (32.0-36.0) L Red Cell Distribution Width 16.2 % (11.6-14.8) H Platelet Count 465 K/UL (150-450) H Mean Platelet Volume 6.0 FL (6.5-10.1) L Neutrophils (%) (Auto) 68.3 % (45.0-75.0) Lymphocytes (%) (Auto) 20.9 % (20.0-45.0) Monocytes (%) (Auto) 6.9 % (1.0-10.0) Eosinophils (%) (Auto) 2.7 % (0.0-3.0) Basophils (%) (Auto) 1.2 % (0.0-2.0) Sodium Level 138 MMOL/L (136-145) Potassium Level 3.7 MMOL/L (3.5-5.1) Chloride Level 103 MMOL/L (98-107) Carbon Dioxide Level 26 MMOL/L (21-32) Anion Gap 9 mmol/L (5-15) Blood Urea Nitrogen 11 mg/dL (7-18) Creatinine 1.2 MG/DL (0.55-1.30) Estimate Glomerular Filtration Rate mL/min (>60) Glucose Level 105 MG/DL (74-106) Lactic Acid Level 1.40 mmol/L (0.4-2.0) Calcium Level 9.0 MG/DL (8.5-10.1) Total Bilirubin 0.3 MG/DL (0.2-1.0) Aspartate Amino Transferase (AST) 12 U/L (15-37) L Alanine Aminotransferase (ALT) 14 U/L (12-78) Alkaline Phosphatase 122 U/L (46-116) H Troponin I 0.000 ng/mL (0.000-0.056) Pro-B-Type Natriuretic Peptide 190 pg/mL (0-125) H Total Protein 8.3 G/DL (6.4-8.2) H Albumin 3.0 G/DL (3.4-5.0) L Globulin 5.3 g/dL Albumin/Globulin Ratio 0.6 (1.0-2.7) L Last Vital Signs Date Time Temp Pulse Resp B/P (MAP) Pulse Ox O2 Delivery O2 Flow Rate FiO2 10/27/19 00:14 99.3 100 18 155/79 (104) 97 Room Air Disposition: HOME, SELF-CARE Condition: Stable Scripts Acetaminophen With Codeine 300MG/30MG (T#3)* (TYLENOL WITH CODEINE #3 TABLET*) Y Tab 1 TAB ORAL Q4H PRN for For Pain, #30 TAB 0 Refills Prov: Marek Adler M.D. 10/27/19 Cephalexin* (KEFLEX*) 500 Mg Capsule 500 MG ORAL EVERY 6 HOURS for 10 Days, #40 CAP Prov: Marek Adler M.D. 10/27/19 Referrals: NON PHYSICIAN (PCP) Marek Adler M.D. Oct 27, 2019 00:28
[2019-10-27 00:45] LABS: BASOPHILS % (AUTO) 1.2 % (0.0-2.0); EOSINOPHILS % (AUTO) 2.7 % (0.0-3.0); HEMATOCRIT 37.1 % (37.0-47.0); HEMOGLOBIN 11.7 G/DL (12.0-16.0); LYMPHOCYTES % (AUTO) 20.9 % (20.0-45.0); MEAN CORPUSCULAR VOLUME 76 FL (80-99); MONOCYTES % (AUTO) 6.9 % (1.0-10.0); NEUTROPHILS % (AUTO) 68.3 % (45.0-75.0); PLATELET COUNT 465 K/UL (150-450); RED BLOOD COUNT 4.85 M/UL (4.20-5.40); RED CELL DISTRIBUTION WIDTH 16.2 % (11.6-14.8); WHITE BLOOD COUNT 8.8 K/UL (4.8-10.8)
[2019-10-27 00:59] LABS: ANION GAP 9 mmol/L (5-15); BLOOD UREA NITROGEN 11 mg/dL (7-18); CARBON DIOXIDE 26 MMOL/L (21-32); CHLORIDE 103 MMOL/L (98-107); CREATININE 1.2 MG/DL (0.55-1.30); POTASSIUM 3.7 MMOL/L (3.5-5.1); SODIUM 138 MMOL/L (136-145)
[2019-10-27 01:09] LABS: ALANINE AMINOTRANSFERASE 14 U/L (12-78); ALBUMIN/GLOBULIN RATIO 0.6 (1.0-2.7); ALKALINE PHOSPHATASE 122 U/L (46-116); ASPARTATE AMINO TRANSFERASE 12 U/L (15-37); BILIRUBIN,TOTAL 0.3 MG/DL (0.2-1.0)
[2019-10-27 02:17] VITALS: BP 149/78
[2019-10-27] MEDS ORDERED: CEPHALEXIN500 MG ORAL ×3 (03:53→04:07)
[2019-10-27] MEDS ORDERED: TYLENOL WITH C1 EACH ORAL ×2 (03:53→04:07)
[2019-10-27 04:30] VITALS: BP 140/91
--- NOTE | 2019-10-29 09:09 | Diagnostic Imaging Report ---
Indication: Left lower extremity pain and swelling. Technique: Duplex Doppler imaging performed from the left common femoral vein to the popliteal vein. FINDINGS: Normal compressibility demonstrated from the common femoral vein to the popliteal vein. Respiratory phasicity and good augmentation demonstrated on waveform analysis. There is no evidence of thrombosis. Some limitation due to severe edema. IMPRESSION: No evidence of deep venous thrombosis within the left lower extremity.
== END 2019-10-27 04:30 | disposition home or self-care (01) ==
LOC: EMR 10-27 00:21
DX: R22.42 Localized swelling, mass and lump, left lower limb (principal); Z88.6 Allergy status to analgesic agent; I11.0 Hypertensive heart disease with heart failure; I50.9 Heart failure, unspecified; K21.9 Gastro-esophageal reflux disease without esophagitis
CPT/HCPCS: 36415; 80053; 83605; 83880; 84484; 85025; 93971; 99284